=== PATIENT | male | born 1950 | race Caucasian/White ===

== ENCOUNTER 2017-01-02 07:21 | Day surgery (SDC) | payer OTHER ==
[2017-01-01 12:37] VITALS: BMI 31.0
[2017-01-02] MEDS ORDERED: METRONIDAZOLE 500 MG PREMIXED 100 ML IVPB ONE (08:12)
[2017-01-02] MEDS ORDERED: MIDAZOLAM HCL 2 MG/2 ML SINGLE DOSE VIAL ONE (08:30)
[2017-01-02] MEDS ORDERED: GENTAMICIN SO4 80 MG/2 ML VIAL ONE (08:41)
[2017-01-02] MEDS ORDERED: GENTAMICIN SO4 80 MG/2 ML VIAL IVPB ONE (08:44)
[2017-01-02] MEDS ORDERED: ceFAZolin SODIUM 1 GM VIAL IVPB ONE (08:46)
[2017-01-02] MEDS ORDERED: METRONIDAZOLE 500 MG PREMIXED 500 MG/100 ML MG IVPB ONE (08:48)
[2017-01-02] MEDS ORDERED: ceFAZolin SODIUM 1 GM VIAL ONE (08:56)
[2017-01-02] MEDS ORDERED: KETOROLAC TROMETHAMINE 30 MG/1 ML VIAL ONE (09:28)
[2017-01-02] MEDS ORDERED: LACTATED RINGERS SOLUTION 1,000 ML IV SCH (09:45)
[2017-01-02] MEDS ORDERED: ONDANSETRON 4 MG/2 ML VIAL IVPUSH PRN (09:45)
[2017-01-02] MEDS ORDERED: oxyCODONE HCL 5 MG TABLET PO PRN ×2 (09:45→10:13)
[2017-01-02] MEDS ORDERED: ACETAMINOPHEN 1000 MG/100 ML VIAL (NON FORMULARY) IVPB PRN (09:48)
[2017-01-02] MEDS ORDERED: hydrALAZINE HCL 20 MG/ML VIAL ONE (09:59)
--- NOTE | 2017-01-02 10:13 | OP ---
Operative Note - Note: Operative Date: 01/02/17 Pre-Operative Diagnosis: left distal ureteral stones Operation: cysto/retro/ureteroscopy/laser litho/stone basketing/stent replacement Findings: multiple large 1cm left distal stones, left distal ureteral stricture Surgeon: Juvenal Reyes Anesthesiologist/AP PROCESSOR: Roseann Bautista Anesthesia: Spinal Specimens Removed: stone frags Drains & Tubes with Location: 8fr, 24cm stent Operative Report Dictated: Yes
[2017-01-02] MEDS ORDERED: ELECTROLYTE-148 SOLN 1,000 ML IV SCH (10:15)
[2017-01-02] MEDS ORDERED: hydrALAZINE HCL 20 MG/ML VIAL IVPUSH PRN (10:45)
[2017-01-02 12:55] VITALS: TEMP 98.1
[2017-01-02 16:45] VITALS: BP 130/80; PULSE 68
--- NOTE | 2017-01-02 21:34 | OP ---
DATE OF OPERATION: 01/02/2017 PREOPERATIVE DIAGNOSIS: Obstructing stones, left distal ureter. POSTOPERATIVE DIAGNOSIS: Obstructing stones, left distal ureter. PROCEDURE: Cystoscopy, stent removal, ureteroscopy, laser lithotripsy, stone basketing, stent replacement. SURGEON: Deirdre Walter MD INDICATION: The patient is a 66-year-old male with multiple obstructing left distal ureteral stones, who underwent stent placement approximately a week and a half ago because of coexistent UTI. He is taken to the OR now for laser lithotripsy of stone. Risks, benefits, alternatives discussed including bleeding, infection, stricture formation, potential inability to access the stone, potential inability to completely eradicate the stone, potential need for additional procedures, potential injury to additional organs. After informed consent obtained, patient taken to OR, placed supine on table. After cardiac monitoring administered, a spinal anesthetic was given. He was prepped and draped in dorsal supine position. The 22 sheath was inserted into urethra without difficulty. Anterior urethra normal, prostatic urethra status post TUR defect. The bladder was then visualized. There was stent emitting from the left ureteral orifice. A guidewire could not be advanced alongside the stent so the stent was removed, a guidewire advanced through the stent into the left renal pelvis. Over the guidewire, a dual-lumen catheter was advanced and a 2nd wire was advanced in the left renal pelvis. Over the 2nd wire, a rigid ureteroscope was advanced into distal ureter. There was stricture into the distal ureter, where 3 large stones were seen impacted at the distal ureter. Each stone was approximately 1 cm in size. There were multiple smaller stones behind these stones. Using the 365 holmium laser fiber, each stone was pulverized to fine dust in 2 to 3 mm fragments. Due to the presence of stricture, it was difficult to remove some of these fragments and so at this point several of the stone fragments were removed with a stone basket and then ureteroscope was then removed and an 8-Romansh 24-cm double-J stent was advanced in monorail fashion over the remaining guidewire and fluoroscopy confirmed the stent to be in good position. The plan is to come back at a later date with the ureter being dilated with a larger stent to clean out the rest of the stone burden. The patient was awoken from anesthesia and transferred to recovery room in stable condition. There were no complications. Estimated blood loss was minimal. DEIRDRE WALTER M.D. [id number]
--- NOTE | 2017-01-03 08:34 | PATH ---
Surgical Pathology Report Patient Name: ERIC MENDEZ Med. Rec. #: [id number] /Age/Gender: 1950 (Age: 66) / M Account: [id number] Location: [facility] SURGICAL Taken: 01/02/2017 Received: 01/02/2017 Reported: 01/03/2017 Physicians: Juvenal Reyes M.D. Specimen(s) Received A: REMOVED STENT B: LEFT KIDNEY STONE Clinical History Kidney stone Final Diagnosis A. PRECISION INSTRUMENT MAKER, LEFT URETER, REMOVAL: URETERAL STENT (GROSS ONLY). B. LEFT KIDNEY STONE, EXTRACTION: CALCULI SUBMITTED FOR CHEMICAL ANALYSIS (gross only). Electronically Signed Eric Youssef M.D. Gross Description A. Received fresh labeled "removed stent," is a 32 cm in length yellow-green, coiled portion of tubing, consistent with a ureteral stent. No soft tissue is present. No sections are submitted, gross only. B. Received fresh labeled "left kidney stone," is a 0.3 cm in greatest dimension lynn, irregular calculus which is sent for chemical analysis. /01/02/2017 located within [facility]01/02/2017
[2017-01-16 14:37] LABS: COLOR ORANGE; SIZE 3X2X2; URIC ACID 100
== END 2017-01-02 16:30 | disposition home or self-care (01) ==
LOC: JASU-SURG 07:21
PROVIDERS: ATTEND Urology
PROC: 0TF78ZZ Fragmentation in Left Ureter, Via Natural or Artificial Opening Endoscopic (ICD-10-PCS; principal; 2017-01-02 08:30)
PROC: 0T778DZ Dilation of Left Ureter with Intraluminal Device, Via Natural or Artificial Opening Endoscopic (ICD-10-PCS; 2017-01-02 08:30)
DX: N20.1 Calculus of ureter (principal)
CPT/HCPCS: 36415; 76000-TC; 82360; 88300-TC; 94760

== ENCOUNTER 2017-01-17 09:59 | Inpatient (IN) | payer OTHER ==
[2017-01-16 14:01] VITALS: BMI 31.0
[2017-01-17] MEDS ORDERED: MIDAZOLAM HCL 2 MG/2 ML SINGLE DOSE VIAL ONE (11:36)
[2017-01-17] MEDS ORDERED: METRONIDAZOLE 500 MG PREMIXED 100 ML IVPB ONE (11:39)
[2017-01-17] MEDS ORDERED: PROPOFOL 20 ML ONE ×2 (11:44→12:38)
[2017-01-17] MEDS ORDERED: SUCCINYLCHOLINE CHLORIDE 200 MG/10 ML VIAL ONE (11:44)
[2017-01-17] MEDS ORDERED: ceFAZolin SODIUM 1 GM VIAL IVPB ONE (11:52)
[2017-01-17] MEDS ORDERED: METRONIDAZOLE 500 MG PREMIXED 500 MG/100 ML MG IVPB ONE (12:00)
[2017-01-17] MEDS ORDERED: IOHEXOL 300 MG/ML INFUS..BTL IV ONE ×2 (12:10)
[2017-01-17] MEDS ORDERED: oxyCODONE HCL 5 MG TABLET PO PRN ×2 (12:53→13:54)
--- NOTE | 2017-01-17 12:53 | OP ---
Operative Note - Note: Operative Date: 01/17/17 Pre-Operative Diagnosis: LDU stones Operation: cysto/stent removal/left ureteroscopy/stone manipulation Findings: stones LDU Post-Operative Diagnosis: Same as Pre-op Surgeon: Juvenal Reyes Anesthesiologist/MANUSCRIPTS ARCHIVIST: Cecile Mohr MD Anesthesia: General, Spinal Specimens Removed: stone frags Estimated Blood Loss (mls): 1 Operative Report Dictated: Yes
[2017-01-17] MEDS ORDERED: ELECTROLYTE-148 SOLN 1,000 ML IV SCH (13:00)
[2017-01-17] MEDS ORDERED: ONDANSETRON 4 MG/2 ML VIAL IVPUSH PRN (13:54)
[2017-01-17] MEDS ORDERED: ACETAMINOPHEN 1000 MG/100 ML VIAL (NON FORMULARY) IVPB ONE (13:55)
[2017-01-17] MEDS ORDERED: oxyCODONE HCL 5 MG TABLET ONE (15:56)
[2017-01-17] MEDS ORDERED: ONDANSETRON 4 MG/2 ML VIAL ONE (16:27)
--- NOTE | 2017-01-17 17:30 | OP ---
DATE OF OPERATION: PREOPERATIVE DIAGNOSIS: Left distal ureteral stones. POSTOPERATIVE DIAGNOSIS: Left distal ureteral stones. PROCEDURE: Cystoscopy, stent removal, ureteroscopy, and stone manipulation. INDICATION: Patient is a 66-year-old male who is status post bonilla lithotripsy of several large left ureteral stones, taken to OR for second look today. DESCRIPTION OF PROCEDURE: The patient was taken to the OR and placed supine on the operating table. After cardiac monitoring was initiated, spinal anesthetic was given. He is prepped and draped in the dorsal supine position. A rigid cystoscope was inserted into the bladder. There was some meatal stenosis that required gentle dilation. Once the bladder was visualized, the stent was seen emanating from the left ureter orifice. This was grasped with a grasper and brought out to the meatus through which a guidewire was advanced into the renal pelvis. Alongside guidewire, a rigid cystoscope was entered distal ureter. There was still some narrowing in the distal ureter consistent with prior stone impaction. There were several small stones noted, and by manipulation of stones with irrigation and using the tip of the ureteroscope, the stones were pushed out of the ureter into the bladder. The ureteroscope was advanced into the mid ureter and no other stones were noted. Ureteroscope and access wire were then removed, and patient was awoken from anesthesia and transferred to recovery in stable condition. There were no complications. Estimated blood loss was minimal. DEIRDRE WALTER M.D. [id number]
--- NOTE | 2017-01-17 18:08 | PN ---
Progress Note (short form) - Note Progress Note: ID consult dictated Fever and CHills s/p Cystoscopy with stent removal and ureteroscopy/ sepsis/gu source choi just placed in [facility] recent cdiff for last two weeks cultures labs IVF AXR low threshold for ct scan abd/pelvis if abdominal pain doesnot improve after placement of choi catheter (just placed) vancomycin one dose meropenem- cover ESBL orginisms, history of recurrent UTIs per urologist continue po vancomycin for cdiff stool cdiff d/w Hospitalist
[2017-01-17] MEDS ORDERED: VANCOMYCIN 1,250 MG in DEXTROSE 5%-WATER - 250 ML IVPB ONE (18:15)
--- NOTE | 2017-01-17 18:23 | HP ---
CHIEF COMPLAINT: fever post op from ureter stent removal PCP: from [facility] urologist : Dr. Reyes HISTORY OF PRESENT ILLNESS: This 66 year old male underwent a ureter stent removal and urethralscopy with stone removal today. While in [facility] recovery, pt developed fever, chills, rigors. Dr. Reyes contacted the hospitalist service for pt admission. Pt has a significant history of current use of vancomycin po for cdiff. According to his , pt has had a decline over the past year with loss of bowel and bladder, shuffling walking, stones kidney reoccuring and mild AMS with findings of normal pressure hydrocephalus. He has also been noncompliant with his medications. ASU course was notable for: (1) stent removal, scoping, and stone removal per Dr. 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 Family History: Allergies No Known Allergies Allergy (Verified 01/17/17 10:43) HOME MEDICATIONS: According to , pt is noncompliant Home Medications Medication Instructions Recorded Amlodipine Bes/Olmesartan Med 1 each PO DAILY 01/01/17 [Amlodipine-Olmesartan 10-20 mg] Atorvastatin Ca [Lipitor] 80 mg PO HS 01/01/17 Metformin HCl [Metformin HCl ER] 1,000 mg PO BID 01/01/17 Tamsulosin HCl 0.4 mg PO DAILY 01/01/17 Vancomycin HCl 125 mg PO QID 01/01/17 REVIEW OF SYSTEMS Unable to obtain ROS as pt is under the influence of pain medications post op and does not make much sense when talking to him PHYSICAL EXAMINATION Vital Signs - 24 hr 01/17/17 01/17/17 01/17/17 10:52 12:52 13:00 Temperature 98.7 F 97.7 F Pulse Rate 69 64 62 Respiratory 6 L 10 L 12 Rate Blood Pressure 144/66 151/75 150/75 O2 Sat by Pulse 97 99 99 Oximetry (%) 01/17/17 01/17/17 01/17/17 13:15 13:30 13:45 Temperature Pulse Rate 61 61 65 Respiratory 15 10 L 14 Rate Blood Pressure 161/80 165/78 177/80 O2 Sat by Pulse 96 97 97 Oximetry (%) 01/17/17 01/17/17 01/17/17 14:00 14:15 14:30 Temperature Pulse Rate 65 68 66 Respiratory 17 15 14 Rate Blood Pressure 184/80 181/83 158/73 O2 Sat by Pulse 97 95 96 Oximetry (%) 01/17/17 01/17/17 14:45 15:00 Temperature 97.7 F Pulse Rate 68 70 Respiratory 12 12 Rate Blood Pressure 167/77 161/75 O2 Sat by Pulse 99 97 Oximetry (%) GENERAL: AA but unable to answer appropriately post op on pain meds. HEAD: Normal with no signs of trauma. NECK: Normal range of motion, supple without lymphadenopathy, JVD, or masses. LUNGS: Breath sounds equal, clear to auscultation bilaterally. No wheezes, and no crackles. No accessory muscle use. HEART: Regular rate and rhythm, normal S1 and S2 without murmur, rub or gallop. ABDOMEN: Soft, nontender, Positive for distended, bowel sounds, no guarding, no rebound, no masses. No hepatomegaly or splenomegaly. : Choi cath in place draining red pinkish urine draining without clots to SBD without blockage. MUSCULOSKELETAL: Normal range of motion at all joints. No bony deformities or tenderness. No CVA tenderness. UPPER EXTREMITIES: 2+ pulses, warm, well-perfused. No cyanosis. No clubbing. No peripheral edema. LOWER EXTREMITIES: 2+ pulses, warm, well-perfused. No calf tenderness. No peripheral edema. NEUROLOGICAL: Cranial nerves II-XII intact. Normal speech. Normal gait. PSYCHIATRIC: Cooperative. Good eye contact. Appropriate mood and affect. SKIN: Warm, dry, normal turgor, no rashes or lesions noted, normal capillary refill. Laboratory Results - last 24 hr 01/17/17 10:36 POC Glucometer 151 ASSESSMENT/PLAN: 66 yr old male with recent /stone surgery and choi placement with Fever, chills, rigors with sign hx of cdiff 1. Post op urethralscopy, stone manipulation and stent removal -continue choi per -IVF and if clotting in choi please contact and hospitalist -ua/ cx -pain meds 2. Cdiff -continue vanco po -appreciate ID note 3. fever -labs, cultures, xray -appreciate ID input on ABT to be started. -tylenol for fever 4. Abd distention -Flat AXR ordered -eval labs -probable CT scan needed tonight once workup completed. -cdiff specimen if produced. 5. HTN -continue amlodipine 6. non compliant with meds -awaiting a list from of pt home meds to input into system to resume 7. sleep apnea -cpap ordered standard numbers, pt does not know his settings. Visit type - Emergency Visit Emergency Visit: No - New Patient This patient is new to me today: Yes Date on this admission: 01/17/17 - Critical Care Critical Care patient: No
[2017-01-17] MEDS: MEROPENEM 1 GM in DEXTROSE 5%-WATER - 100 ML IVPB SCH ×2 (19:00→20:20)
[2017-01-17 19:06] LABS: PH,URINE 6.5 (5.0-8.0); URINE APPEARANCE CLEAR; URINE BILIRUBIN NEGATIVE (NEGATIVE); URINE COLOR DK. RED; URINE GLUCOSE (UA) TRACE (NEGATIVE); URINE KETONE 1+ (NEGATIVE); URINE UROBILINOGEN 4.0 E.U/dl E.U./dl (0.2-1.0)
[2017-01-17 19:11] LABS: URINE BLOOD 3+ (NEGATIVE); URINE LEUK ESTERASE 2+ (NEGATIVE); URINE NITRITE POSITIVE (NEGATIVE); URINE PROTEIN 3+ (NEGATIVE)
[2017-01-17 19:16] LABS: CALCIUM OXALATE CRYSTALS MANY /hpf (NONE SEEN); URINE RBC 5464 /hpf (0-3)
[2017-01-17 19:21] LABS: BASOPHIL 0.3 % (0-2.0); EOSINOPHIL 0.1 % (0-4.5); MCH 26.1 pg (25.7-33.7); MCHC 33.7 g/dl (32.0-35.9); MEAN CELL VOLUME 77.4 fl (80-96); MEAN PLT VOLUME 7.6 fl (7.5-11.1); NEUTROPHILS 93.4 % (42.8-82.8); PLATELET COUNT 233 K/MM3 (134-434); RDW 14.4 % (11.9-15.9); WHITE BLOOD COUNT 12.1 K/mm3 (4.0-10.0)
[2017-01-17 19:50] LABS: ALBUMIN 3.2 g/dl (3.4-5.0); ALK PHOS 157 U/L (45-117); ANION GAP 11 (8-16); BILIRUBIN,TOTAL 0.8 mg/dL (0.2-1.0); CALCIUM 8.3 mg/dL (8.5-10.1); CO2 23 mmol/L (21-32); COCKROFT - GAULT 83.91; CREATININE 1.1 mg/dL (0.7-1.3); GLUCOSE,RANDOM 267 mg/dL (74-106); SGOT/AST 10 U/L (15-37); SGPT/ALT 19 U/L (12-78); TOT PROT 6.9 g/dl (6.4-8.2)
--- NOTE | 2017-01-17 20:04 | PN ---
Progress Note (short form) - Note Progress Note: Developed fever, urinary retention, abdominal distention and left LQ pain after ureteroscopy and stent removal. In retrosprect the LLQ pain has been persistant for weeks. CT show\s no evidence of ureteral obstruction, or extravastation. There is ureteral edema and perinephric stranding. Will be placed on broad spectrum antibiotics and monitored. ID and Hospitalist inputs appreciated
[2017-01-17] MEDS: LACTATED RINGERS SOLUTION 1,000 ML IV SCH (20:18)
[2017-01-17] MEDS: VANCOMYCIN 250 MG/5 ML ORAL SOLUTION PO SCH (21:11)
--- NOTE | 2017-01-17 21:18 | CONS ---
DATE OF CONSULTATION: DATE OF DICTATION: 01/17/2017 REQUESTED BY: Juvenal Reyes MD HISTORY OF PRESENT ILLNESS: This is a 66-year-old man with past medical history of recurrent nephrolithiasis, diabetes, hypertension, who about a month ago, was at [facility] with left-sided abdominal pain. He had a spiral CT, had a stone. He had a stent placed. He subsequently developed fever, was rehospitalized, was then told he had a urinary tract infection for which he was given antibiotics as well as Clostridium difficile. He apparently has a longstanding history of fecal incontinence and loose stools and tested positive for Clostridium difficile and he was treated with oral vancomycin. He now was brought in today to the [facility] for cystoscopy, stent removal and ureteroscopy and removal of stone. He, postprocedure, developed shaking chills and had fever to 101.4, hence I was asked to see him. The family is not aware of any of the nature of his urinary tract infections. They do not know what antibiotics he got in the operating room. He received Ancef and Flagyl here. I spoke with Dr. Reyes who reports he has a 2-year history of urinary tract infections. ALLERGIES: No known allergies. MEDICATIONS: At home include tamsulosin, metformin, atorvastatin, amlodipine, olmesartan, and oral vancomycin, which he has been taking for 2 weeks. PAST MEDICAL HISTORY: Notable for diabetes, hypertension, normal pressure hydrocephalus and nephrolithiasis. PAST SURGICAL HISTORY: He had surgery of his right elbow. He had shoulder arthroscopy. He had kidney surgery to have some cysts removed from his kidney 4 years ago at [facility]. He had an anal fissure repair 8 years ago. SOCIAL HISTORY: He is . He is retired. 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 He lives with his . He is a former smoker. Social alcohol. No other substance use. REVIEW OF SYSTEMS: He has had colonoscopy in the past, which has been normal. He does have chronic fecal incontinence and loose stools, which have been apparently attributed both to the repair of his anus as well as his normal pressure hydrocephalus. PHYSICAL EXAMINATION: General: He is awake but he is uncomfortable. Vital Signs: Temperature 97.7, T-max is 101.4, pulse 70, blood pressure 161/75, respiratory rate 12, he is saturating 97%. HEENT: He is normocephalic. His eyes are anicteric. Neck: Supple. Lungs: Clear to auscultation. Heart: Regular rate and rhythm. Abdomen: Soft, distended. He has good bowel sounds. He has some left lower quadrant discomfort on palpation. Apparently the stent was removed from the left side. A García was just placed by the nurse and he has gross hematuria. His extremities are without edema. He has no rash. LABORATORY DATA: We have no laboratory data and we have no culture data. IN SUMMARY: This is a 66-year-old man with possible sepsis from his urologic procedure today. García was just placed with hematuria. He is still in the ASU, and he had recent Clostridium difficile. Would obtain cultures, labs, treat him with IV fluids. Will get an abdominal x-ray for his abdominal distention. Low threshold for CT scan of his abdomen and pelvis if his abdominal pain does not improve with the García catheter. Will give him vancomycin and meropenem, as he has a history of recurrent urinary tract infection Extended-spectrum beta lactamase organisms are a consideration. Would continue oral vancomycin for Clostridium difficile and would check a stool Clostridium difficile as well. All of the above was discussed with the hospitalist. PETR GRANADOS M.D. [id number]
[2017-01-17] MEDS: ACETAMINOPHEN 325 MG TABLET (FP) PO PRN (22:10)
[2017-01-18] MEDS: VANCOMYCIN 250 MG/5 ML ORAL SOLUTION PO SCH ×4 (00:05→18:10)
[2017-01-18] MEDS: MEROPENEM 1 GM in DEXTROSE 5%-WATER - 100 ML IVPB SCH ×3 (01:25→18:03)
[2017-01-18] MEDS: LACTATED RINGERS SOLUTION 1,000 ML IV SCH (04:44)
[2017-01-18] MEDS ORDERED: ACETAMINOPHEN 650 MG SUPP.RECT PR PRN (04:50)
[2017-01-18] MEDS ORDERED: PT OWN MED DRAWER 7, Y5N ONE ×4 (06:19→18:00)
[2017-01-18 07:17] LABS: BASOPHIL 0.2 % (0-2.0); MCH 26.2 pg (25.7-33.7); MCHC 33.9 g/dl (32.0-35.9); MEAN CELL VOLUME 77.5 fl (80-96); MEAN PLT VOLUME 7.6 fl (7.5-11.1); NEUTROPHILS 94.9 % (42.8-82.8); PLATELET COUNT 224 K/MM3 (134-434); RDW 14.1 % (11.9-15.9)
[2017-01-18 07:24] LABS: INR 1.43 (0.82-1.09); PROTHROMBIN TIME (PATIENT) 15.8 SEC (9.98-11.88)
[2017-01-18 07:41] LABS: ALBUMIN 2.9 g/dl (3.4-5.0); ANION GAP 10 (8-16); BILIRUBIN,TOTAL 0.7 mg/dL (0.2-1.0); CALCIUM 8.2 mg/dL (8.5-10.1); CO2 26 mmol/L (21-32); COCKROFT - GAULT 76.92; CREATININE 1.2 mg/dL (0.7-1.3); GLUCOSE,RANDOM 245 mg/dL (74-106); SGOT/AST 10 U/L (15-37); SGPT/ALT 17 U/L (12-78); TOT PROT 6.4 g/dl (6.4-8.2)
[2017-01-18 07:42] LABS: ALK PHOS 147 U/L (45-117)
--- NOTE | 2017-01-18 08:19 | PN ---
Progress Note (short form) - Note Progress Note: c/o gas pains. states he been having lots of flatus since yesterday. no other complaints. Denies Cp, SOB, N/V/C/D, Current Medications Generic Name Dose Route Start Last Admin Trade Name Freq PRN Reason Stop Dose Admin Acetaminophen 650 mg 01/17/17 22:04 01/17/17 22:10 Tylenol - PO 650 mg Q4H PRN Administration FEVER Acetaminophen 650 mg 01/18/17 04:50 01/18/17 04:30 Tylenol Suppository - SD 650 mg Q4H PRN Administration FEVER OR PAIN Fentanyl 50 mcg 01/17/17 13:54 01/17/17 13:55 Sublimaze Injection - IVPUSH 01/20/17 13:55 50 mcg [id number] PRN Administration PAIN Lactated Ringer's 1,000 mls @ 75 mls/hr 01/17/17 14:00 01/18/17 04:44 Lactated Ringers Solution IV 75 mls/hr ASDIR EUGENE Administration Meropenem 1 gm/ Dextrose 100 mls @ 200 mls/hr 01/17/17 18:15 01/18/17 01:25 IVPB 200 mls/hr Q8H-IV EUGENE Administration Protocol Metronidazole 100 mls @ 100 mls/hr 01/18/17 10:00 Flagyl 500mg Premixed Ivpb - IVPB Q8H-IV EUGENE Oxycodone HCl 10 mg 01/17/17 12:53 01/17/17 16:00 Roxicodone - PO 10 mg Q4H PRN Administration PAIN Oxycodone HCl 5 mg 01/17/17 13:54 Roxicodone - PO Q4H PRN MILD PAIN Vancomycin HCl 125 mg 01/17/17 18:00 01/18/17 06:16 Vancomycin Oral Solution PO Not Given Q6HPO EUGENE Last Vital Signs Temp Pulse Resp BP Pulse Ox 102.4 F H 105 H 20 148/74 98 01/18/17 06:52 01/18/17 04:40 01/18/17 04:40 01/18/17 04:40 01/17/17 23:00 General NAD A&O x2 (self and time) CV S1 S2 RRR +murmur no rubs or gallops Lungs CTA B/L anteriorly no wheeizing or crackles Abdomen +distended soft +BS no rebound or guarding unable to palpate liver edge no caput medusa/hemangiomata Extremities no pedal edema CBCD WBC 13.0 K/mm3 (4.0-10.0) H 01/18/17 06:00 RBC 4.21 M/mm3 (4.00-5.60) 01/18/17 06:00 Hgb 11.1 GM/dL (11.7-16.9) L 01/18/17 06:00 Hct 32.6 % (35.4-49) L 01/18/17 06:00 MCV 77.5 fl (80-96) L 01/18/17 06:00 MCHC 33.9 g/dl (32.0-35.9) 01/18/17 06:00 RDW 14.1 % (11.9-15.9) 01/18/17 06:00 Plt Count 224 K/MM3 (134-434) 01/18/17 06:00 MPV 7.6 fl (7.5-11.1) 01/18/17 06:00 CMP Sodium 138 mmol/L (136-145) 01/18/17 06:00 Potassium 3.4 mmol/L (3.5-5.1) L 01/18/17 06:00 Chloride 102 mmol/L (98-107) 01/18/17 06:00 Carbon Dioxide 26 mmol/L (21-32) 01/18/17 06:00 Anion Gap 10 (8-16) 01/18/17 06:00 BUN 14 mg/dL (7-18) 01/18/17 06:00 Creatinine 1.2 mg/dL (0.7-1.3) 01/18/17 06:00 Creat Clearance w eGFR > 60 (>60) 01/18/17 06:00 Calcium 8.2 mg/dL (8.5-10.1) L 01/18/17 06:00 Total Bilirubin 0.7 mg/dL (0.2-1.0) 01/18/17 06:00 AST 10 U/L (15-37) L 01/18/17 06:00 ALT 17 U/L (12-78) 01/18/17 06:00 Alkaline Phosphatase 147 U/L (45-117) H 01/18/17 06:00 Total Protein 6.4 g/dl (6.4-8.2) 01/18/17 06:00 Albumin 2.9 g/dl (3.4-5.0) L 01/18/17 06:00 A/p 66yo M with PMH DM, NPH, HTN, nephrolithasis and cdiff was admitted for post -op fever and chills after ureteral stent removal and lithortipsy 1. Sepsis due to likely UTI- Hx of ESBL in the past.CXR negative. Tm 103. choi placed with carrillo hematuria noted. will give 1L NS in setting of active sepsis. vanco x1 given and on meropenem day 2. started on Flagyl today. awaiting cx. ID and urology on board. CT abdomen and pelvis negative for pyelo or intra- abdominal source of infection 2. abdominal distention- no signs of acute abdomen. tolerating diet. no BM since admitted. AXR showing air in the stomach but no signs of ileus on CT or signs of obstruction or free air. simethicone. monitor for now as tolerating diet 3. Portal HTN-seen on CT scan. pt has no recollection of being told of cirrhosis or portal HTN. denies heavy ETOH use. check hepatitis panel. obtain collateral records from PMD on Friday 4. Cdiff- on treatment about week per pt. no reports of loose stools. cdiff pending. on vanco po. contact precautions 5. HTN- above goal. re-start norvasc and monitor 6. DM- hold oral agents in setting of recent contrast exposure. iss, bgm 7. DVT ppx- SCD. hold pharmacologic in setting of active hematuria. Visit type - Emergency Visit Emergency Visit: No - New Patient This patient is new to me today: Yes Date on this admission: 01/18/17 - Critical Care Critical Care patient: No - Discharge Referral Referred to [facility] Med P.C.: No
[2017-01-18] MEDS ORDERED: SIMETHICONE 80 MG TAB.CHEW (FP) PO PRN (08:21)
[2017-01-18] MEDS ORDERED: SODIUM CHLORIDE 1,000 ML IV ONE (08:24)
[2017-01-18] MEDS ORDERED: METRONIDAZOLE 500 MG PREMIXED 100 ML IVPB SCH (10:00)
--- NOTE | 2017-01-18 10:05 | EKG ---
Test Reason : Blood Pressure : / mmHG Vent. Rate : 065 BPM Atrial Rate : 065 BPM P-R Int : 152 ms QRS Dur : 142 ms QT Int : 420 ms P-R-T Axes : 026 017 019 degrees QTc Int : 436 ms NORMAL SINUS RHYTHM RIGHT BUNDLE BRANCH BLOCK ABNORMAL ECG NO PREVIOUS ECGS AVAILABLE Confirmed by TODD BEACH MD ([id number]) on 01/18/2017 10:05:22 AM Referred By: Juvenal Reyes Confirmed By:TODD BEACH MD
[2017-01-18] MEDS: TAMSULOSIN HCL 0.4 MG CAP.ER.24H (FP) PO SCH (10:14)
[2017-01-18] MEDS: amLODIPine BESYLATE 5 MG TABLET (FP) PO SCH (10:14)
--- NOTE | 2017-01-18 10:23 | PN ---
Progress Note (short form) - Note Progress Note: awake and alert fevers overnight no abdominal pain today refused oral vancomycin overnight so IV flagyl was started- now agreeable to oral vancomycin ct scan noted- Vital Signs Period Temp Pulse Resp BP Sys/Wilson Pulse Ox Last 24 Hr 97.7 F-103.0 F 61-117 6-20 129-184/66-94 93-99 cor-rrr lungs clear abd soft, less distended, nontender +BM choi hematuria- less bloody ext no edema CBC, BMP 01/18/17 06:00 01/18/17 06:00 cultures pending a/p sepsis s/p cystoscopy yesterday and stent removal continue meropenem f/u cultures unfortunately urine culture was not sent prior to antiibotics- although it was ordered cdiff- by history continue po vancomycin, will d/c flagyl f/u cultures ?liver cirrhosis/portal HTN- noted on ct scan
--- NOTE | 2017-01-18 10:54 | PN ---
Progress Note (short form) - Note Progress Note: has spiked temps overnight overall feels better no abdominal pain abdominal distention improved urine less bloody cont choi-will give voiding trial when afebrile will start flomax
[2017-01-18] MEDS: INSULIN SLIDING SCALE (NOVOLOG) 1 VIAL SQ SCH ×3 (11:33→22:50)
[2017-01-18] MEDS: ACETAMINOPHEN 325 MG TABLET (FP) PO PRN ×2 (11:46→18:05)
[2017-01-18] MEDS: ATORVASTATIN CA 80 MG TABLET (FP) PO SCH (22:48)
[2017-01-19] MEDS: VANCOMYCIN 250 MG/5 ML ORAL SOLUTION PO SCH ×4 (00:32→18:24)
[2017-01-19] MEDS ORDERED: PT OWN MED DRAWER 7, Y5N ONE ×3 (01:15→10:07)
[2017-01-19] MEDS: MEROPENEM 1 GM in DEXTROSE 5%-WATER - 100 ML IVPB SCH ×2 (01:31→10:14)
[2017-01-19] MEDS: ACETAMINOPHEN 325 MG TABLET (FP) PO PRN ×2 (01:32→21:31)
[2017-01-19] MEDS: INSULIN SLIDING SCALE (NOVOLOG) 1 VIAL SQ SCH ×4 (06:01→21:38)
[2017-01-19 08:34] LABS: BASOPHIL 0.2 % (0-2.0); EOSINOPHIL 0.3 % (0-4.5); MCH 26.8 pg (25.7-33.7); MCHC 34.8 g/dl (32.0-35.9); MEAN CELL VOLUME 77.1 fl (80-96); MEAN PLT VOLUME 7.9 fl (7.5-11.1); NEUTROPHILS 89.6 % (42.8-82.8); PLATELET COUNT 191 K/MM3 (134-434); RDW 14.5 % (11.9-15.9); WHITE BLOOD COUNT 8.1 K/mm3 (4.0-10.0)
[2017-01-19 09:11] LABS: ALBUMIN 2.7 g/dl (3.4-5.0); ALK PHOS 166 U/L (45-117); ANION GAP 12 (8-16); BILIRUBIN,TOTAL 0.7 mg/dL (0.2-1.0); CALCIUM 8.3 mg/dL (8.5-10.1); CO2 26 mmol/L (21-32); GLUCOSE,RANDOM 156 mg/dL (74-106); SGOT/AST 18 U/L (15-37); SGPT/ALT 23 U/L (12-78)
[2017-01-19] MEDS ORDERED: CASPOFUNGIN ACETATE 70 MG in SODIUM CHLORIDE 250 ML IVPB ONE (10:06)
--- NOTE | 2017-01-19 10:12 | PN ---
Progress Note (short form) - Note Progress Note: has spiked temp to 103 overnight, afebrile now blood cultures with yeast feels better, no abdominal pain abdominal distention continues to improve urine much less bloody cont choi, flomax antifungal tx as per ID
[2017-01-19] MEDS: amLODIPine BESYLATE 5 MG TABLET (FP) PO SCH (10:15)
[2017-01-19] MEDS: TAMSULOSIN HCL 0.4 MG CAP.ER.24H (FP) PO SCH (10:15)
--- NOTE | 2017-01-19 10:55 | PN ---
Progress Note (short form) - Note Progress Note: awake and alert fevers overnight no abdominal pain today no vomiting, eating his meals no visual complaints Vital Signs Period Temp Pulse Resp BP Sys/Wilson Pulse Ox Last 24 Hr 97.7 F-103 F 78-107 18-20 119-155/59-84 cor-rrr llungs clear abd soft,much less distended, nontender choi less blood ext no edema CBC, BMP 01/19/17 06:30 01/19/17 06:30 Microbiology 01/17/17 19:09 Blood - Peripheral Venous Blood Culture - Preliminary Pending Organism 01/17/17 19:09 Blood - Peripheral Venous Blood Culture - Preliminary NO GROWTH OBTAINED AFTER 24 HOURS, INCUBATION TO CONTINUE FOR 4 DAYS. 01/18/17 04:30 Stool Clostridium difficile Antigen (LAURA) - Final 01/18/17 04:30 Stool Clostridium difficile Toxin Assay - Final a/p sepsis s/p cystoscopy yesterday and stent removal Fungemia- start cancidas today repeat blood cultures in am, d/c meropenem should be seen by opthomology cdiff- by history continue po vancomycin ?liver cirrhosis/portal HTN- noted on ct scan d/w patient d/w d/w urology
--- NOTE | 2017-01-19 14:14 | PN ---
Teaching Attending Note Name of Resident: Chalino Zavala ATTENDING PHYSICIAN STATEMENT I saw and evaluated the patient. I reviewed the resident's note and discussed the case with the resident. I agree with the resident's findings and plan as documented. SUBJECTIVE: overall feels improved. continues to have soft stool but not watery like it was previously. tolerating diet. states abdomen feels less bloated. denies Cp, SOB,fever, chills, N/V/C/D no blurred vision OBJECTIVE: Last Vital Signs Temp Pulse Resp BP Pulse Ox 98.4 F 80 18 136/74 94 L 01/19/17 12:53 01/19/17 12:53 01/19/17 12:53 01/19/17 12:53 01/19/17 11:14 General NAD A&Ox2 (self and location) CV S1 S2 RRR +murmur no rubs or gallops Lungs CTA B/L anteriorly no wheeizing or crackles Abdomen +distended soft +BS no rebound or guarding Extremities no pedal edema ASSESSMENT AND PLAN: 66yo M with PMH DM, NPH, HTN, nephrolithasis and cdiff was admitted for post-op fever and chills after ureteral stent removal and lithortipsy 1. Sepsis due to fungemia-Suspicion of UTI however cx negative. BCx with fungemia. started on Caspofungin. will need to have optho evaluation. wait for final Cx report. 2. abdominal distention- no signs of acute abdomen. tolerating diet. monitor for now as tolerating diet 3. Hypokalemia- KCl 40meq, check Mg 4. Portal HTN-seen on CT scan. pt has no recollection of being told of cirrhosis or portal HTN. denies heavy ETOH use. hepatitis panel pending. obtain collateral records from PMD on Friday 5. Cdiff- cdiff here negative. continues to have soft stool. contact precautions 6. HTN- improved. cont norvasc 7. DM- A1c 7.9. hold oral agents in setting of recent contrast exposure. iss, bgm 8. DVT ppx- SCD. hold pharmacologic in setting of active hematuria.
--- NOTE | 2017-01-19 14:46 | PN ---
Physical Exam: SUBJECTIVE: Patient seen and examined Pt is awake, alert and oriented to place and person Pt is mildly forgetful Pt has fever overnight no dysuria no hematuria abdominal pain or back pain OBJECTIVE: Vital Signs Period Temp Pulse Resp BP Sys/Wilson Pulse Ox Last 24 Hr 97.7 F-103 F 78-107 18-20 119-155/59-84 94-97 GENERAL: The patient is awake, alert, and fully oriented, in no acute distress. HEAD: Normal with no signs of trauma. LUNGS: Breath sounds equal, clear to auscultation bilaterally, no wheezes, no crackles, no accessory muscle use. HEART: Regular rate and rhythm, S1, S2 with murmur, rub or gallop. ABDOMEN: Soft, nontender, nondistended, normoactive bowel sounds, no guarding, no rebound, no hepatosplenomegaly, no masses. EXTREMITIES: 2+ pulses, warm, well-perfused, no edema. NEUROLOGICAL: Normal speech, gait not observed. PSYCH: Normal mood, normal affect. SKIN: Warm, dry, normal turgor, no rashes or lesions noted Laboratory Results - last 24 hr 01/18/17 01/18/17 01/19/17 18:06 22:49 05:56 WBC RBC Hgb Hct MCV MCHC RDW Plt Count MPV Neutrophils % Lymphocytes % Monocytes % Eosinophils % Basophils % Sodium Potassium Chloride Carbon Dioxide Anion Gap BUN Creatinine Creat Clearance w eGFR POC Glucometer 138 165 201 Random Glucose Hemoglobin A1c % Calcium Total Bilirubin AST ALT Alkaline Phosphatase Total Protein Albumin 01/19/17 01/19/17 01/19/17 06:30 06:30 06:30 WBC 8.1 D RBC 3.85 L Hgb 10.3 L Hct 29.7 L MCV 77.1 L MCHC 34.8 RDW 14.5 Plt Count 191 MPV 7.9 Neutrophils % 89.6 H Lymphocytes % 4.8 L D Monocytes % 5.1 Eosinophils % 0.3 D Basophils % 0.2 Sodium 137 Potassium 3.3 L Chloride 99 Carbon Dioxide 26 Anion Gap 12 BUN 15 Creatinine 1.0 Creat Clearance w eGFR > 60 POC Glucometer Random Glucose 156 H D Hemoglobin A1c % 7.9 H Calcium 8.3 L Total Bilirubin 0.7 AST 18 D ALT 23 D Alkaline Phosphatase 166 H Total Protein 6.0 L Albumin 2.7 L 01/19/17 12:04 WBC RBC Hgb Hct MCV MCHC RDW Plt Count MPV Neutrophils % Lymphocytes % Monocytes % Eosinophils % Basophils % Sodium Potassium Chloride Carbon Dioxide Anion Gap BUN Creatinine Creat Clearance w eGFR POC Glucometer 154 Random Glucose Hemoglobin A1c % Calcium Total Bilirubin AST ALT Alkaline Phosphatase Total Protein Albumin Active Medications Generic Name Dose Route Start Last Admin Trade Name Freq PRN Reason Stop Dose Admin Acetaminophen 650 mg 01/17/17 22:04 01/19/17 01:32 Tylenol - PO 650 mg Q4H PRN Administration FEVER Acetaminophen 650 mg 01/18/17 04:50 01/18/17 04:30 Tylenol Suppository - [place] 650 mg Q4H PRN Administration FEVER OR PAIN Amlodipine Besylate 5 mg 01/18/17 10:00 01/19/17 10:15 Norvasc - PO 5 mg DAILY EUGENE Administration Atorvastatin Calcium 80 mg 01/18/17 22:00 01/18/17 22:48 Lipitor - PO 80 mg HS EUGENE Administration Fentanyl 50 mcg 01/17/17 13:54 01/17/17 13:55 Sublimaze Injection - IVPUSH 01/20/17 13:55 50 mcg [id number] PRN Administration PAIN Caspofungin 50 mg/ Sodium 250 mls @ 250 mls/hr 01/20/17 10:00 Chloride IVPB DAILY [facility] Insulin Aspart 1 vial 01/18/17 11:00 01/19/17 12:05 Novolog Vial Sliding Scale - SQ Not Given ACHS [facility] Protocol Oxycodone HCl 10 mg 01/17/17 12:53 01/17/17 16:00 Roxicodone - PO 10 mg Q4H PRN Administration PAIN Oxycodone HCl 5 mg 01/17/17 13:54 Roxicodone - PO Q4H PRN MILD PAIN Simethicone 80 mg 01/18/17 08:21 Mylicon - PO Q4H PRN bloating Tamsulosin HCl 0.4 mg 01/18/17 10:00 01/19/17 10:15 Flomax - PO 0.4 mg DAILY [facility] Administration Vancomycin HCl 125 mg 01/17/17 18:00 01/19/17 12:09 Vancomycin Oral Solution PO 125 mg Q6HPO EUGENE Administration CBC, BMP 01/19/17 06:30 01/19/17 06:30 Microbiology 01/18/17 04:30 Stool Clostridium difficile Antigen (LAURA) - Final 01/18/17 04:30 Stool Clostridium difficile Toxin Assay - Final 01/18/17 00:12 Urine - Urine García Urine Culture - Final NO GROWTH OBTAINED 01/17/17 19:09 Blood - Peripheral Venous Blood Culture - Preliminary Pending Organism 01/17/17 19:09 Blood - Peripheral Venous Blood Culture - Preliminary NO GROWTH OBTAINED AFTER 24 HOURS, INCUBATION TO CONTINUE FOR 4 DAYS. ASSESSMENT/PLAN: 66 year old male with pmh of DM, HTN, nephrolithiasis, Cdiff present with fever and chilsl s/p Cystoscopy with stent removal Sepsis with Fungemia from UTI tmax 103 overnight, HR 107 CT abdomen and pelvis showed no abscess, no pyelonephritis and s/s of infections. Blood culture positive for yeast like organism Pt was on merem Was switched to caspofungin by ID F/u urine culture and blood culture repeat blood culture in am urology on case Abdominal Distension No free air seen on CT abdomen/pelvis No n/v no abdominal tenderness tolerating diet well on simethicone C-diff H/o of C-diff 2 soft, pasty bowel movement per day, none watery per pt Nurse say that stool is yellow and watery Was on Po vancomycin Cdiff antigen and toxin negative Consider continuing C-diff antibiotic course as it was incomplete last time ID on case HTN SBP 155 or less on amlodipine 5mg PO daily DM hgA1c 7.9 Used 4 unit novolog coverage in alst 24 hours Novolog sliding scale Portable hypertension with hepatomegaly and possible liver cirrhosis hepatitis panel pending Pt denies any h/o liver disease Obtain records from PCP in am 01/20/17 FEN Fluid: none Electrolytes: chemistry in am Nutrition: diabetic diet DVT prophylaxis: SCD Disposition: Keep in medsurg pending resolution of sepsis Visit type - Emergency Visit Emergency Visit: Yes ED Registration Date: 01/17/17 Care time: The patient presented to the Emergency Department on the above date and was hospitalized for further evaluation of their emergent condition. - New Patient This patient is new to me today: Yes Date on this admission: 01/19/17 - Critical Care Critical Care patient: No - Discharge Referral Referred to [facility] No
[2017-01-19] MEDS ORDERED: POTASSIUM CHLORIDE ORAL LIQUID 20 MEQ/15 ML PO ONE (15:49)
[2017-01-19] MEDS ORDERED: INSULIN (NOVOLOG) ASPART 100 UNITS/ML 10ML VIAL ONE (18:17)
[2017-01-19] MEDS: ATORVASTATIN CA 80 MG TABLET (FP) PO SCH (21:31)
[2017-01-20] MEDS: VANCOMYCIN 250 MG/5 ML ORAL SOLUTION PO SCH ×4 (06:28→17:33)
[2017-01-20] MEDS: INSULIN SLIDING SCALE (NOVOLOG) 1 VIAL SQ SCH ×4 (06:28→22:02)
[2017-01-20] MEDS ORDERED: INSULIN DETEMIR 100 UNITS/ML MDV SQ ONE (06:57)
[2017-01-20 08:24] LABS: MCH 26.3 pg (25.7-33.7); MCHC 34.6 g/dl (32.0-35.9); MEAN CELL VOLUME 76.2 fl (80-96); PLATELET COUNT 192 K/MM3 (134-434); RDW 14.7 % (11.9-15.9); WHITE BLOOD COUNT 6.3 K/mm3 (4.0-10.0)
[2017-01-20 08:54] LABS: CALCIUM 8.1 mg/dL (8.5-10.1); COCKROFT - GAULT 115.38; CREATININE 0.8 mg/dL (0.7-1.3); MAGNESIUM 2.2 mg/dL (1.8-2.4)
[2017-01-20] MEDS ORDERED: PT OWN MED DRAWER 7, Y5N ONE (09:51)
[2017-01-20] MEDS: CASPOFUNGIN ACETATE 50 MG in SODIUM CHLORIDE 250 ML IVPB SCH (09:54)
[2017-01-20] MEDS: amLODIPine BESYLATE 5 MG TABLET (FP) PO SCH (09:54)
[2017-01-20] MEDS: TAMSULOSIN HCL 0.4 MG CAP.ER.24H (FP) PO SCH (09:54)
--- NOTE | 2017-01-20 11:53 | PN ---
Physical Exam: SUBJECTIVE: Patient seen and examined Pt say he is feeling better fever overnight with Tmax 100.6 No n/v no dizziness or confusion no abdominal pain, tolerating diet well Still Complaining of soft pasty bowel movements OBJECTIVE: Vital Signs Period Temp Pulse Resp BP Sys/Wilson Pulse Ox Last 24 Hr 98.3 F-100.6 F 66-84 18-20 134-154/65-85 94 GENERAL: The patient is awake, alert, and fully oriented, in no acute distress. HEAD: Normal with no signs of trauma. LUNGS: Breath sounds equal, clear to auscultation bilaterally, no wheezes, no crackles, no accessory muscle use. HEART: Regular rate and rhythm, S1, S2 with murmur, rub or gallop. ABDOMEN: Soft, nontender, nondistended, normoactive bowel sounds, no guarding, no rebound, no hepatosplenomegaly, no masses. EXTREMITIES: 2+ pulses, warm, well-perfused, no edema. NEUROLOGICAL: Normal speech, gait not observed. PSYCH: Normal mood, normal affect. SKIN: Warm, dry, normal turgor, no rashes or lesions noted Laboratory Results - last 24 hr 01/19/17 01/19/17 01/19/17 12:04 17:33 21:35 WBC RBC Hgb Hct MCV MCHC RDW Plt Count MPV Sodium Potassium Chloride Carbon Dioxide Anion Gap BUN Creatinine POC Glucometer 154 219 232 Random Glucose Calcium Magnesium Albumin 01/20/17 01/20/17 01/20/17 06:15 06:15 06:15 WBC 6.3 RBC 3.96 L Hgb 10.4 L Hct 30.2 L MCV 76.2 L MCHC 34.6 RDW 14.7 Plt Count 192 MPV 8.0 Sodium 137 Potassium 3.6 Chloride 102 Carbon Dioxide 25 Anion Gap 10 BUN 18 Creatinine 0.8 POC Glucometer Random Glucose 185 H Calcium 8.1 L Magnesium 2.2 Albumin 2.8 L 01/20/17 06:26 WBC RBC Hgb Hct MCV MCHC RDW Plt Count MPV Sodium Potassium Chloride Carbon Dioxide Anion Gap BUN Creatinine POC Glucometer 190 Random Glucose Calcium Magnesium Albumin Active Medications Generic Name Dose Route Start Last Admin Trade Name Freq PRN Reason Stop Dose Admin Acetaminophen 650 mg 01/17/17 22:04 01/19/17 21:31 Tylenol - PO 650 mg Q4H PRN Administration FEVER Acetaminophen 650 mg 01/18/17 04:50 01/18/17 04:30 Tylenol Suppository - [place] 650 mg Q4H PRN Administration FEVER OR PAIN Amlodipine Besylate 5 mg 01/18/17 10:00 01/20/17 09:54 Norvasc - PO 5 mg DAILY [facility] Administration Atorvastatin Calcium 80 mg 01/18/17 22:00 01/19/17 21:31 Lipitor - PO 80 mg HS [facility] Administration Fentanyl 50 mcg 01/17/17 13:54 01/17/17 13:55 Sublimaze Injection - IVPUSH 01/20/17 13:55 50 mcg [id number] PRN Administration PAIN Caspofungin 50 mg/ Sodium 250 mls @ 250 mls/hr 01/20/17 10:00 01/20/17 09:54 Chloride IVPB 250 mls/hr DAILY [facility] Administration Insulin Aspart 1 vial 01/18/17 11:00 01/20/17 06:28 Novolog Vial Sliding Scale - SQ Not Given ACHS [facility] Protocol Oxycodone HCl 10 mg 01/17/17 12:53 01/17/17 16:00 Roxicodone - PO 10 mg Q4H PRN Administration PAIN Oxycodone HCl 5 mg 01/17/17 13:54 Roxicodone - PO Q4H PRN MILD PAIN Simethicone 80 mg 01/18/17 08:21 Mylicon - PO Q4H PRN bloating Tamsulosin HCl 0.4 mg 01/18/17 10:00 01/20/17 09:54 Flomax - PO 0.4 mg DAILY [facility] Administration Vancomycin HCl 125 mg 01/17/17 18:00 01/20/17 06:28 Vancomycin Oral Solution PO 125 mg Q6HPO [facility] Administration CBC, BMP 01/20/17 06:15 01/20/17 06:15 Microbiology 01/17/17 19:09 Blood - Peripheral Venous Yeast/Fungus Identification - Preliminary 01/17/17 19:09 Blood - Peripheral Venous Blood Culture - Preliminary Yeast Like Organism Selected Entries 01/19/17 22:00 Temperature 100.6 F H Laboratory Tests 01/20/17 01/20/17 06:15 06:15 Calcium 8.1 L Magnesium 2.2 Albumin 2.8 L ASSESSMENT/PLAN: 66 year old male with pmh of DM, HTN, nephrolithiasis, Cdiff present with fever and chilsl s/p Cystoscopy with stent removal Sepsis with Fungemia, unknown source once again fever overnight with Tmax 100.6 CT abdomen and pelvis showed no abscess, no pyelonephritis and s/s of infections. Blood culture positive for yeast like organism Caspofungin day 2 ID on case F/u urine culture and blood culture urology on case Abdominal Distension No free air seen on CT abdomen/pelvis No n/v no abdominal tenderness tolerating diet well on simethicone C-diff H/o of C-diff still having diarrhea, pasty stool Cdiff antigen and toxin negative Consider continuing C-diff antibiotic course as it was incomplete last time ID on case continue Po vancomycin HTN BP controlled on amlodipine 5mg PO daily DM hgA1c 7.9 Blood glucose controlled Novolog sliding scale Portable hypertension with hepatomegaly and possible liver cirrhosis hepatitis panel pending Pt denies any h/o liver disease denies h/o liver disease FEN Fluid: none Electrolytes: chemistry in am Nutrition: diabetic diet DVT prophylaxis: SCD Disposition: Keep in medsurg pending resolution of sepsis Visit type - Emergency Visit Emergency Visit: Yes ED Registration Date: 01/17/17 Care time: The patient presented to the Emergency Department on the above date and was hospitalized for further evaluation of their emergent condition. - New Patient This patient is new to me today: Yes - Critical Care Critical Care patient: No - Discharge Referral Referred to [facility] No
--- NOTE | 2017-01-20 13:27 | PN ---
Teaching Attending Note Name of Resident: Chalino Zavala ATTENDING PHYSICIAN STATEMENT I saw and evaluated the patient. I reviewed the resident's note and discussed the case with the resident. I agree with the resident's findings and plan as documented. SUBJECTIVE:states he feels great and wants to go home. continues to have loose stools but states they are less frequent. hematuria resolved. denies CP, SOB, fever, chills, N/V/C states he does not feel as his stomach is distended OBJECTIVE: Last Vital Signs Temp Pulse Resp BP Pulse Ox 98.4 F 78 20 125/65 94 L 01/20/17 09:00 01/20/17 09:00 01/20/17 09:00 01/20/17 09:00 01/19/17 21:00 General NAD A&Ox2 (self and location) CV S1 S2 RRR +murmur no rubs or gallops Abdomen +distended soft +BS no rebound or guarding Extremities no pedal edema ASSESSMENT AND PLAN: 66yo M with PMH DM, NPH, HTN, nephrolithasis and cdiff was admitted for post-op fever and chills after ureteral stent removal and lithortipsy 1. Sepsis due to fungemia-Suspicion of UTI however cx negative. BCx with fungemia. started on Caspofungin day2. repeat cx sent today. optho consulted to evaluate for eye involvement. wait for final Cx report. 2. abdominal distention- no signs of acute abdomen. tolerating diet. monitor for now as tolerating diet 3. Nephrolithasis with stent placement- now removal. stone pathology pending. choi per urology. on flomax 4. Hypokalemia- resolved 5. Portal HTN-seen on CT scan. pt has no recollection of being told of cirrhosis or portal HTN. denies heavy ETOH use. hepatitis panel pending. obtain collateral records from PMD on Friday. hepatitis panel pending 6. Cdiff- cdiff here negative. continues to have soft stool. contact precautions 7. HTN- improved. cont norvasc 8. DM- A1c 7.9. hold oral agents in setting of recent contrast exposure. iss, bgm 9. DVT ppx- SCD. hold pharmacologic in setting of active hematuria.
--- NOTE | 2017-01-20 13:40 | PN ---
Progress Note (short form) - Note Progress Note: awake and alert fever curve trending down no visual complaints no prosthetic devices Vital Signs Period Temp Pulse Resp BP Sys/Wilson Pulse Ox Last 24 Hr 98.3 F-100.6 F 66-84 20-20 125-154/65-85 94 cor-rrr lungs clear abd soft,nt ext no edema +choi CBC, BMP 01/20/17 06:15 01/20/17 06:15 Microbiology 01/17/17 19:09 Blood - Peripheral Venous Yeast/Fungus Identification - Preliminary 01/17/17 19:09 Blood - Peripheral Venous Blood Culture - Preliminary Yeast Like Organism 01/17/17 19:09 Blood - Peripheral Venous Blood Culture - Preliminary NO GROWTH OBTAINED AFTER 48 HOURS, INCUBATION TO CONTINUE FOR 3 DAYS. 01/18/17 00:12 Urine - Urine Choi Urine Culture - Final NO GROWTH OBTAINED 01/18/17 04:30 Stool Clostridium difficile Antigen (LAURA) - Final 01/18/17 04:30 Stool Clostridium difficile Toxin Assay - Final a/p sepsis s/p cystoscopy 01/17 and stent removal Fungemia- cancidas day #2 repeat blood cultures sent tidat should be seen by opthomology cdiff- by history continue po vancomycin ?liver cirrhosis/portal HTN- noted on ct scan d/w patient d/w at [facility] all questions answered
--- NOTE | 2017-01-20 13:53 | PATH ---
Surgical Pathology Report Patient Name: SWETHA MENDEZ Med. Rec. #: [id number] /Age/Gender: 1950 (Age: 66) / M Account: [id number] Location: [facility] MED/SURG Taken: 01/17/2017 Received: 01/17/2017 Reported: 01/20/2017 Physicians: Juvenal Reyes M.D. Specimen(s) Received URETERAL STONES Clinical History Ureteral stones Final Diagnosis URETERAL STONES, EXTRACTION: CALCULI (GROSS EXAM). SPECIMEN SENT FOR CHEMICAL ANALYSIS. Electronically Signed Sam Gutierrez M.D. Gross Description Received fresh labeled "ureteral stones" are 9 lynn, irregular calculi ranging from 0.1-0.2 cm in greatest dimension. The specimen is sent for chemical analysis. DL/01/17/201701/17/2017
[2017-01-20] MEDS: ATORVASTATIN CA 80 MG TABLET (FP) PO SCH (22:10)
[2017-01-20] MEDS: ACETAMINOPHEN 325 MG TABLET (FP) PO PRN (22:11)
[2017-01-21] MEDS: VANCOMYCIN 250 MG/5 ML ORAL SOLUTION PO SCH ×5 (00:32→23:55)
[2017-01-21] MEDS: INSULIN SLIDING SCALE (NOVOLOG) 1 VIAL SQ SCH ×4 (07:07→22:11)
--- NOTE | 2017-01-21 08:00 | PN ---
Progress Note (short form) - Note Progress Note: afebrile urine clear no abdominal pain/distention d/c choi for voiding trial antifungal tx as per ID
[2017-01-21] MEDS ORDERED: PT OWN MED DRAWER 7, Y5N ONE ×2 (09:56→10:02)
[2017-01-21] MEDS: amLODIPine BESYLATE 5 MG TABLET (FP) PO SCH (10:08)
[2017-01-21] MEDS: TAMSULOSIN HCL 0.4 MG CAP.ER.24H (FP) PO SCH (10:08)
[2017-01-21] MEDS: CASPOFUNGIN ACETATE 50 MG in SODIUM CHLORIDE 250 ML IVPB SCH (11:36)
--- NOTE | 2017-01-21 15:00 | PN ---
Physical Exam: SUBJECTIVE: Patient seen and examined Pt is feeling comfortable NO s/s of distress Pt is happy that he no longer has choi cath No fever, no chills overnight Still complaining of watery stool no n/v no abdominal pain OBJECTIVE: Vital Signs Period Temp Pulse Resp BP Sys/Wilson Pulse Ox Last 24 Hr 98 F-98.9 F 66-87 16-20 141-176/72-99 GENERAL: The patient is awake, alert, and fully oriented, in no acute distress. HEAD: Normal with no signs of trauma. LUNGS: Breath sounds equal, clear to auscultation bilaterally, no wheezes, no crackles, no accessory muscle use. HEART: Regular rate and rhythm, S1, S2 with murmur, rub or gallop. ABDOMEN: Soft, nontender, nondistended, normoactive bowel sounds, no guarding, no rebound, no hepatosplenomegaly, no masses. EXTREMITIES: 2+ pulses, warm, well-perfused, no edema. NEUROLOGICAL: Normal speech, gait not observed. PSYCH: Normal mood, normal affect. SKIN: Warm, dry, normal turgor, no rashes or lesions noted Laboratory Results - last 24 hr 01/20/17 01/20/17 01/21/17 16:50 21:59 07:03 POC Glucometer 245 192 201 01/21/17 11:52 POC Glucometer 227 Active Medications Generic Name Dose Route Start Last Admin Trade Name Freq PRN Reason Stop Dose Admin Acetaminophen 650 mg 01/17/17 22:04 01/20/17 22:11 Tylenol - PO 650 mg Q4H PRN Administration FEVER Acetaminophen 650 mg 01/18/17 04:50 01/18/17 04:30 Tylenol Suppository - [place] 650 mg Q4H PRN Administration FEVER OR PAIN Amlodipine Besylate 5 mg 01/18/17 10:00 01/21/17 10:08 Norvasc - PO 5 mg DAILY [facility] Administration Atorvastatin Calcium 80 mg 01/18/17 22:00 01/20/17 22:10 Lipitor - PO 80 mg HS [facility] Administration Caspofungin 50 mg/ Sodium 250 mls @ 250 mls/hr 01/20/17 10:00 01/21/17 11:36 Chloride IVPB 250 mls/hr DAILY [facility] Administration Insulin Aspart 1 vial 01/18/17 11:00 01/21/17 12:00 Novolog Vial Sliding Scale - SQ 2 units ACHS [facility] Administration Protocol Oxycodone HCl 10 mg 01/17/17 12:53 01/17/17 16:00 Roxicodone - PO 10 mg Q4H PRN Administration PAIN Oxycodone HCl 5 mg 01/17/17 13:54 Roxicodone - PO Q4H PRN MILD PAIN Simethicone 80 mg 01/18/17 08:21 Mylicon - PO Q4H PRN bloating Tamsulosin HCl 0.4 mg 01/18/17 10:00 01/21/17 10:08 Flomax - PO 0.4 mg DAILY [facility] Administration Vancomycin HCl 125 mg 01/17/17 18:00 01/21/17 12:00 Vancomycin Oral Solution PO 125 mg Q6HPO [facility] Administration CBC, BMP 01/20/17 06:15 01/20/17 06:15 Microbiology 01/17/17 19:09 Blood - Peripheral Venous Blood Culture - Final Yeast Like Organism 01/20/17 06:15 Blood - Peripheral Venous Blood Culture - Preliminary NO GROWTH OBTAINED AFTER 24 HOURS, INCUBATION TO CONTINUE FOR 4 DAYS. 01/20/17 06:15 Blood - Peripheral Venous Blood Culture - Preliminary NO GROWTH OBTAINED AFTER 24 HOURS, INCUBATION TO CONTINUE FOR 4 DAYS. ASSESSMENT/PLAN: 66 year old male with pmh of DM, HTN, nephrolithiasis, Cdiff present with fever and chills s/p Cystoscopy with stent removal Sepsis with Fungemia, unknown source NO fever overnight CT abdomen and pelvis showed no abscess, no pyelonephritis and s/s of infections. Blood culture positive for yeast like organism Caspofungin day 3 ID on case urine culture negative F/u new blood culture done yesterday, so far negative for 24 hours urology on case Ophtalmology consulted Abdominal Distension No free air seen on CT abdomen/pelvis No n/v no abdominal tenderness tolerating diet well on simethicone C-diff H/o of C-diff still having diarrhea, pasty stool Cdiff antigen and toxin negative Consider continuing C-diff antibiotic course as it was incomplete last time ID on case continue Po vancomycin HTN BP controlled on amlodipine 5mg PO daily DM hgA1c 7.9 Blood glucose controlled Novolog sliding scale Portable hypertension with hepatomegaly and possible liver cirrhosis hepatitis panel pending Pt denies any h/o liver disease denies h/o liver disease FEN Fluid: none Electrolytes: chemistry in am Nutrition: diabetic diet DVT prophylaxis: SCD Disposition: Keep in medsurg pending resolution of sepsis Visit type - Emergency Visit Emergency Visit: Yes ED Registration Date: 01/17/17 Care time: The patient presented to the Emergency Department on the above date and was hospitalized for further evaluation of their emergent condition. - New Patient This patient is new to me today: Yes Date on this admission: 01/21/17 - Critical Care Critical Care patient: No - Discharge Referral Referred to [facility] No
--- NOTE | 2017-01-21 15:39 | PN ---
Progress Note (short form) - Note Progress Note: awake and alert 2 BMS today choi out voiding well anxious to go home Vital Signs Period Temp Pulse Resp BP Sys/Wilson Pulse Ox Last 24 Hr 98 F-98.9 F 66-80 18-20 141-176/74-99 cor-rrr lungs clear abd soft,nt ext no edema CBC, BMP 01/20/17 06:15 01/20/17 06:15 Microbiology 01/17/17 19:09 Blood - Peripheral Venous Blood Culture - Final Yeast Like Organism 01/20/17 06:15 Blood - Peripheral Venous Blood Culture - Preliminary NO GROWTH OBTAINED AFTER 24 HOURS, INCUBATION TO CONTINUE FOR 4 DAYS. 01/20/17 06:15 Blood - Peripheral Venous Blood Culture - Preliminary NO GROWTH OBTAINED AFTER 24 HOURS, INCUBATION TO CONTINUE FOR 4 DAYS. 01/17/17 19:09 Blood - Peripheral Venous Blood Culture - Preliminary NO GROWTH OBTAINED AFTER 72 HOURS, INCUBATION TO CONTINUE FOR 2 DAYS. 01/17/17 19:09 Blood - Peripheral Venous Yeast/Fungus Identification - Preliminary 01/18/17 00:12 Urine - Urine Choi Urine Culture - Final NO GROWTH OBTAINED 01/18/17 04:30 Stool Clostridium difficile Antigen (LAURA) - Final 01/18/17 04:30 Stool Clostridium difficile Toxin Assay - Final a/p sepsis s/p cystoscopy 01/17 and stent removal Fungemia- cancidas day #3 repeat blood cultures sent should be seen by opthomology cdiff- by history continue po vancomycin ?liver cirrhosis/portal HTN- noted on ct scan d/w patient
--- NOTE | 2017-01-21 17:37 | PN ---
Teaching Attending Note Name of Resident: Chalino Zavala ATTENDING PHYSICIAN STATEMENT I saw and evaluated the patient. I reviewed the resident's note and discussed the case with the resident. I agree with the resident's findings and plan as documented. SUBJECTIVE: Patient wants to go home. OBJECTIVE: Vital Signs Period Temp Pulse Resp BP Sys/Wilson Pulse Ox Last 24 Hr 98 F-98.9 F 66-104 16-20 141-176/74-88 HEART: S1S2, RRR, (+) 2/6 systolic murmur LUNGS: Clear ABDOMEN: Soft, non-tender, non-distended, normal BS EXTREMITIES: No edema ASSESSMENT AND PLAN: This is a 66-year-old man with a history of type 2 DM, NPH, HTN, kidney stones, C. diff colitis who was admitted for fever and chills after cystoscopy, left ureteral stent removal and and stone manipulation. 1. Sepsis secondary to fungemia - Possible urinary source - Continue Cancidas - Repeat blood cultures pending 2. Nephrolithasis, s/p stent placement and removal, stone manipulation - García has been removed - Continue Flomax 3. Hypokalemia - Resolved 4. Portal HTN - Hepatitis panel pending 5. History of C. difficile colitis - Continue PO Vancomycin 6. HTN - Continue Norvasc 7. Type 2 DM - Continue Novolog sliding scale 8. Hyperlipidemia - Continue Lipitor
[2017-01-21] MEDS: ACETAMINOPHEN 325 MG TABLET (FP) PO PRN (19:37)
[2017-01-21] MEDS ORDERED: MELATONIN 5 MG TABLETS PO ONE (20:28)
[2017-01-21] MEDS: ATORVASTATIN CA 80 MG TABLET (FP) PO SCH (22:11)
[2017-01-22] MEDS ORDERED: PT OWN MED DRAWER 7, Y5N ONE ×2 (05:53→12:15)
[2017-01-22] MEDS: INSULIN SLIDING SCALE (NOVOLOG) 1 VIAL SQ SCH ×4 (06:12→22:25)
[2017-01-22] MEDS: VANCOMYCIN 250 MG/5 ML ORAL SOLUTION PO SCH ×3 (06:13→17:26)
[2017-01-22] MEDS: TAMSULOSIN HCL 0.4 MG CAP.ER.24H (FP) PO SCH (10:34)
[2017-01-22] MEDS: amLODIPine BESYLATE 5 MG TABLET (FP) PO SCH (10:34)
[2017-01-22] MEDS: CASPOFUNGIN ACETATE 50 MG in SODIUM CHLORIDE 250 ML IVPB SCH (10:36)
[2017-01-22] MEDS ORDERED: INSULIN (NOVOLOG) ASPART 100 UNITS/ML 10ML VIAL ONE ×2 (12:16→21:53)
--- NOTE | 2017-01-22 16:09 | PN ---
Physical Exam: SUBJECTIVE: Patient seen and examined Pt is awake, alert and oriented No fever or chills no chest pain or palpitation No n/v Pt is complaining of multiple episode of urinary incontinence OBJECTIVE: Vital Signs Period Temp Pulse Resp BP Sys/Wilson Pulse Ox Last 24 Hr 97.7 F-99.0 F 63-88 16-18 134-151/73-79 96-98 GENERAL: The patient is awake, alert, and fully oriented, in no acute distress. HEAD: Normal with no signs of trauma. LUNGS: Breath sounds equal, clear to auscultation bilaterally, no wheezes, no crackles, no accessory muscle use. HEART: Regular rate and rhythm, S1, S2 with murmur, rub or gallop. ABDOMEN: Soft, nontender, distended, normoactive bowel sounds, no guarding, no rebound, no hepatosplenomegaly, no masses. EXTREMITIES: 2+ pulses, warm, well-perfused, no edema. NEUROLOGICAL: Normal speech, gait not observed. PSYCH: Normal mood, normal affect. SKIN: Warm, dry, normal turgor, no rashes or lesions noted Laboratory Results - last 24 hr 01/21/17 01/21/17 01/22/17 17:07 22:10 06:11 POC Glucometer 226 220 195 01/22/17 11:53 POC Glucometer 206 Active Medications Generic Name Dose Route Start Last Admin Trade Name Freq PRN Reason Stop Dose Admin Acetaminophen 650 mg 01/17/17 22:04 01/21/17 19:37 Tylenol - PO 650 mg Q4H PRN Administration FEVER Acetaminophen 650 mg 01/18/17 04:50 01/18/17 04:30 Tylenol Suppository - CA 650 mg Q4H PRN Administration FEVER OR PAIN Amlodipine Besylate 5 mg 01/18/17 10:00 01/22/17 10:34 Norvasc - PO 5 mg DAILY EUGENE Administration Atorvastatin Calcium 80 mg 01/18/17 22:00 01/21/17 22:11 Lipitor - PO 80 mg HS EUGENE Administration Caspofungin 50 mg/ Sodium 250 mls @ 250 mls/hr 01/20/17 10:00 01/22/17 10:36 Chloride IVPB 250 mls/hr DAILY EUGENE Administration Insulin Aspart 1 vial 01/18/17 11:00 01/22/17 12:23 Novolog Vial Sliding Scale - SQ 2 units ACHS EUGENE Administration Protocol Oxycodone HCl 10 mg 01/17/17 12:53 01/17/17 16:00 Roxicodone - PO 10 mg Q4H PRN Administration PAIN Oxycodone HCl 5 mg 01/17/17 13:54 Roxicodone - PO Q4H PRN MILD PAIN Simethicone 80 mg 01/18/17 08:21 Mylicon - PO Q4H PRN bloating Tamsulosin HCl 0.4 mg 01/18/17 10:00 01/22/17 10:34 Flomax - PO 0.4 mg DAILY EUGENE Administration Vancomycin HCl 125 mg 01/17/17 18:00 01/22/17 12:23 Vancomycin Oral Solution PO 125 mg Q6HPO EUGENE Administration CBC, BMP 01/20/17 06:15 01/20/17 06:15 ASSESSMENT/PLAN: 66 year old male with pmh of DM, HTN, nephrolithiasis, Cdiff present with fever and chills s/p Cystoscopy with stent removal Sepsis with Fungemia, unknown source NO fever overnight CT abdomen and pelvis showed no abscess, no pyelonephritis and s/s of infections. Blood culture positive for yeast like organism Caspofungin day 4 ID on case urine culture negative F/u new blood culture done yesterday, so far negative for 48 hours urology on case Ophtalmology consulted Urinary Incontinence Bladder scan Recall Dr Pineda Abdominal Distension No free air seen on CT abdomen/pelvis No n/v no abdominal tenderness tolerating diet well on simethicone C-diff H/o of C-diff still having diarrhea, pasty stool Cdiff antigen and toxin negative Consider continuing C-diff antibiotic course as it was incomplete last time ID on case continue Po vancomycin HTN BP controlled on amlodipine 5mg PO daily DM hgA1c 7.9 Blood glucose controlled Novolog sliding scale Portable hypertension with hepatomegaly and possible liver cirrhosis hepatitis panel pending Pt denies any h/o liver disease denies h/o liver disease Outpatient GI follow Up FEN Fluid: none Electrolytes: chemistry in am Nutrition: diabetic diet DVT prophylaxis: SCD Disposition: Keep in medsurg pending resolution of sepsis Visit type - Emergency Visit Emergency Visit: Yes ED Registration Date: 01/17/17 Care time: The patient presented to the Emergency Department on the above date and was hospitalized for further evaluation of their emergent condition. - New Patient This patient is new to me today: Yes - Critical Care Critical Care patient: No - Discharge Referral Referred to [facility] Med P.C.: No
--- NOTE | 2017-01-22 16:11 | PN ---
Progress Note (short form) - Note Progress Note: awake and alert anxious to go home Vital Signs Period Temp Pulse Resp BP Sys/Wilson Pulse Ox Last 24 Hr 97.7 F-99.0 F 63-88 16-18 134-151/73-79 96-98 cor-rrr lungs clear abd soft,nt ext no edema CBC, BMP 01/20/17 06:15 01/20/17 06:15 Microbiology 01/17/17 19:09 Blood - Peripheral Venous Blood Culture - Final Yeast Like Organism 01/20/17 06:15 Blood - Peripheral Venous Blood Culture - Preliminary NO GROWTH OBTAINED AFTER 48 HOURS, INCUBATION TO CONTINUE FOR 3 DAYS. 01/20/17 06:15 Blood - Peripheral Venous Blood Culture - Preliminary NO GROWTH OBTAINED AFTER 48 HOURS, INCUBATION TO CONTINUE FOR 3 DAYS. 01/17/17 19:09 Blood - Peripheral Venous Blood Culture - Final Yeast Like Organism 01/17/17 19:09 Blood - Peripheral Venous Yeast/Fungus Identification - Preliminary 01/18/17 00:12 Urine - Urine García Urine Culture - Final NO GROWTH OBTAINED 01/18/17 04:30 Stool Clostridium difficile Antigen (LAURA) - Final 01/18/17 04:30 Stool Clostridium difficile Toxin Assay - Final echo negative a/p sepsis s/p cystoscopy 01/17 and stent removal Fungemia- cancidas day #4 repeat blood cultures sent should be seen by opthomology awaiting ID of yeast in blood culture cdiff- by history continue po vancomycin ?liver cirrhosis/portal HTN- noted on ct scan d/w patient
--- NOTE | 2017-01-22 17:49 | PN ---
Teaching Attending Note Name of Resident: Chalino Zavala ATTENDING PHYSICIAN STATEMENT I saw and evaluated the patient. I reviewed the resident's note and discussed the case with the resident. I agree with the resident's findings and plan as documented. SUBJECTIVE: Patient complaining of urinary incontinence. OBJECTIVE: Vital Signs Period Temp Pulse Resp BP Sys/Wilson Pulse Ox Last 24 Hr 97.7 F-98.6 F 63-88 16-18 138-151/73-74 96-98 HEART: S1S2, RRR, (+) 2/6 systolic murmur LUNGS: Clear ABDOMEN: Soft, non-tender, non-distended, normal BS EXTREMITIES: No edema ASSESSMENT AND PLAN: This is a 66-year-old man with a history of type 2 DM, NPH, HTN, kidney stones, C. diff colitis who was admitted for fever and chills after cystoscopy, left ureteral stent removal and and stone manipulation. 1. Sepsis secondary to fungemia - Possible urinary source - Continue Cancidas - Repeat blood cultures negative so far 2. Nephrolithiasis, s/p stent placement and removal, stone manipulation, now with incontinence of urine - García has been removed - Continue Flomax - Urology follow-up 3. Hypokalemia - Resolved 4. Portal HTN - Hepatitis panel negative 5. History of C. difficile colitis - Continue PO Vancomycin 6. HTN - Continue Norvasc 7. Type 2 DM - Continue Novolog sliding scale 8. Hyperlipidemia - Continue Lipitor
[2017-01-22] MEDS: ATORVASTATIN CA 80 MG TABLET (FP) PO SCH (22:25)
[2017-01-22] MEDS: diphenhydrAMINE HCL 25 MG CAPSULE (FP) PO SCH (22:25)
[2017-01-23] MEDS: VANCOMYCIN 250 MG/5 ML ORAL SOLUTION PO SCH ×4 (00:05→17:21)
[2017-01-23] MEDS: INSULIN SLIDING SCALE (NOVOLOG) 1 VIAL SQ SCH ×4 (06:29→21:57)
[2017-01-23] MEDS ORDERED: PT OWN MED DRAWER 7, Y5N ONE (10:13)
[2017-01-23] MEDS: LACTOBACILLUS ACIDOPHILUS 1 EACH TAB (FP) PO SCH (10:16)
[2017-01-23] MEDS: TAMSULOSIN HCL 0.4 MG CAP.ER.24H (FP) PO SCH (10:16)
[2017-01-23] MEDS: amLODIPine BESYLATE 5 MG TABLET (FP) PO SCH (10:17)
[2017-01-23] MEDS ORDERED: amLODIPine BESYLATE 5 MG TABLET (FP) PO SCH (10:34)
[2017-01-23] MEDS ORDERED: amLODIPine BESYLATE 5 MG TABLET (FP) PO ONE (10:35)
[2017-01-23] MEDS: CASPOFUNGIN ACETATE 50 MG in SODIUM CHLORIDE 250 ML IVPB SCH (10:38)
--- NOTE | 2017-01-23 12:58 | PN ---
Progress Note (short form) - Note Progress Note: afebrile urine clear voiding spontaneously no bladder distention antifungal tx as per ID
--- NOTE | 2017-01-23 14:40 | PN ---
Progress Note (short form) - Note Progress Note: awake and alert anxious to go home Vital Signs Period Temp Pulse Resp BP Sys/Wilson Pulse Ox Last 24 Hr 97.9 F-98.8 F 60-72 18-20 140-172/68-88 97 cor-rrr lungs clear abd soft,nt ext no edema echo negative Microbiology 01/17/17 19:09 Blood - Peripheral Venous Yeast/Fungus Identification - Final Maryan Albicans 01/20/17 06:15 Blood - Peripheral Venous Blood Culture - Preliminary NO GROWTH OBTAINED AFTER 72 HOURS, INCUBATION TO CONTINUE FOR 2 DAYS. 01/20/17 06:15 Blood - Peripheral Venous Blood Culture - Preliminary NO GROWTH OBTAINED AFTER 72 HOURS, INCUBATION TO CONTINUE FOR 2 DAYS. 01/21/17 18:25 Blood - Peripheral Venous Blood Culture - Preliminary NO GROWTH OBTAINED AFTER 24 HOURS, INCUBATION TO CONTINUE FOR 4 DAYS. 01/21/17 18:25 Blood - Peripheral Venous Blood Culture - Preliminary NO GROWTH OBTAINED AFTER 24 HOURS, INCUBATION TO CONTINUE FOR 4 DAYS. 01/17/17 19:09 Blood - Peripheral Venous Blood Culture - Final Yeast Like Organism 01/17/17 19:09 Blood - Peripheral Venous Blood Culture - Final Yeast Like Organism 01/18/17 00:12 Urine - Urine García Urine Culture - Final NO GROWTH OBTAINED 01/18/17 04:30 Stool Clostridium difficile Antigen (LAURA) - Final 01/18/17 04:30 Stool Clostridium difficile Toxin Assay - Final Current Medications Acetaminophen (Tylenol -) 650 mg PO Q4H PRN PRN Reason: FEVER Last Admin: 01/21/17 19:37 Dose: 650 mg Acetaminophen (Tylenol Suppository -) 650 mg NE Q4H PRN PRN Reason: FEVER OR PAIN Last Admin: 01/18/17 04:30 Dose: 650 mg Amlodipine Besylate (Norvasc -) 10 mg PO DAILY EUGENE Atorvastatin Calcium (Lipitor -) 80 mg PO HS EUGENE Last Admin: 01/22/17 22:25 Dose: 80 mg Diphenhydramine HCl (Benadryl -) 25 mg PO HS EUGENE Last Admin: 01/22/17 22:25 Dose: 25 mg Caspofungin 50 mg/ Sodium (Chloride) 250 mls @ 250 mls/hr IVPB DAILY EUGENE Last Admin: 01/23/17 10:38 Dose: 250 mls/hr Insulin Aspart (Novolog Vial Sliding Scale -) 1 vial SQ ACHS EUGENE PRN Reason: Protocol Last Admin: 01/23/17 11:36 Dose: 6 units Lactobacillus Acidophilus (Bacid -) 1 tab PO DAILY [facility] Last Admin: 01/23/17 10:16 Dose: 1 tab Oxycodone HCl (Roxicodone -) 10 mg PO Q4H PRN PRN Reason: PAIN Last Admin: 01/17/17 16:00 Dose: 10 mg Oxycodone HCl (Roxicodone -) 5 mg PO Q4H PRN PRN Reason: MILD PAIN Simethicone (Mylicon -) 80 mg PO Q4H PRN PRN Reason: bloating Tamsulosin HCl (Flomax -) 0.4 mg PO DAILY [facility] Last Admin: 01/23/17 10:16 Dose: 0.4 mg Vancomycin HCl (Vancomycin Oral Solution) 125 mg PO Q6HPO [facility] Last Admin: 01/23/17 11:23 Dose: 125 mg a/p sepsis s/p cystoscopy 01/17 and stent removal Fungemia- cancidas day #5 repeat blood cultures negative to date should be seen by opthomology maryan albicans! finish 7 days iv treatment and then home on po diflucan 400 daily for 14 days should have f/u labs including LFTS as outpt could go home after dose on Friday check labs in am cdiff- by history continue po vancomycin another 48 hours then d/c diarrhea has resolved ?liver cirrhosis/portal HTN- noted on ct scan d/w patient Problem List - Problems (1) Sepsis Code(s): A41.9 - SEPSIS, UNSPECIFIED ORGANISM (2) Fungemia Code(s): B49 - UNSPECIFIED MYCOSIS (3) C. difficile colitis Code(s): A04.7 - ENTEROCOLITIS DUE TO CLOSTRIDIUM DIFFICILE
--- NOTE | 2017-01-23 16:03 | PN ---
Physical Exam: SUBJECTIVE: Patient seen and examined Pt denies fever and chills No n/v No abdominal pain No dizziness or confusion no dysuria No hematuria OBJECTIVE: Vital Signs Period Temp Pulse Resp BP Sys/Wilson Pulse Ox Last 24 Hr 97.9 F-98.8 F 60-72 18-20 140-172/68-88 97 GENERAL: The patient is awake, alert, and fully oriented, in no acute distress. HEAD: Normal with no signs of trauma. LUNGS: Breath sounds equal, clear to auscultation bilaterally, no wheezes, no crackles, no accessory muscle use. HEART: Regular rate and rhythm, S1, S2 with murmur, rub or gallop. ABDOMEN: Soft, nontender, obese , normoactive bowel sounds, no guarding, no rebound, no hepatosplenomegaly, no masses. EXTREMITIES: 2+ pulses, warm, well-perfused, no edema. NEUROLOGICAL: Normal speech, gait not observed. PSYCH: Normal mood, normal affect. SKIN: Warm, dry, normal turgor, no rashes or lesions noted Laboratory Results - last 24 hr 01/22/17 01/22/17 01/23/17 17:22 22:20 05:45 POC Glucometer 201 277 199 01/23/17 11:24 POC Glucometer 308 Active Medications Generic Name Dose Route Start Last Admin Trade Name Freq PRN Reason Stop Dose Admin Acetaminophen 650 mg 01/17/17 22:04 01/21/17 19:37 Tylenol - PO 650 mg Q4H PRN Administration FEVER Acetaminophen 650 mg 01/18/17 04:50 01/18/17 04:30 Tylenol Suppository - GA 650 mg Q4H PRN Administration FEVER OR PAIN Amlodipine Besylate 10 mg 01/24/17 10:00 Norvasc - PO DAILY EUGENE Atorvastatin Calcium 80 mg 01/18/17 22:00 01/22/17 22:25 Lipitor - PO 80 mg HS EUGENE Administration Diphenhydramine HCl 25 mg 01/22/17 22:00 01/22/17 22:25 Benadryl - PO 25 mg HS EUGENE Administration Caspofungin 50 mg/ Sodium 250 mls @ 250 mls/hr 01/20/17 10:00 01/23/17 10:38 Chloride IVPB 250 mls/hr DAILY EUGENE Administration Insulin Aspart 1 vial 01/18/17 11:00 01/23/17 11:36 Novolog Vial Sliding Scale - SQ 6 units ACHS EUGENE Administration Protocol Lactobacillus Acidophilus 1 tab 01/23/17 10:00 01/23/17 10:16 Bacid - PO 1 tab DAILY EUGENE Administration Oxycodone HCl 10 mg 01/17/17 12:53 01/17/17 16:00 Roxicodone - PO 10 mg Q4H PRN Administration PAIN Oxycodone HCl 5 mg 01/17/17 13:54 Roxicodone - PO Q4H PRN MILD PAIN Simethicone 80 mg 01/18/17 08:21 Mylicon - PO Q4H PRN bloating Tamsulosin HCl 0.4 mg 01/18/17 10:00 01/23/17 10:16 Flomax - PO 0.4 mg DAILY EUGENE Administration Vancomycin HCl 125 mg 01/17/17 18:00 01/23/17 11:23 Vancomycin Oral Solution PO 125 mg Q6HPO EUGENE Administration CBC, BMP 01/20/17 06:15 01/20/17 06:15 Microbiology 01/17/17 19:09 Blood - Peripheral Venous Yeast/Fungus Identification - Final Maryan Albicans 01/17/17 19:09 Blood - Peripheral Venous Blood Culture - Final Yeast Like Organism 01/17/17 19:09 Blood - Peripheral Venous Blood Culture - Final Yeast Like Organism 01/21/17 18:25 Blood - Peripheral Venous Blood Culture - Preliminary NO GROWTH OBTAINED AFTER 24 HOURS, INCUBATION TO CONTINUE FOR 4 DAYS. 01/21/17 18:25 Blood - Peripheral Venous Blood Culture - Preliminary NO GROWTH OBTAINED AFTER 24 HOURS, INCUBATION TO CONTINUE FOR 4 DAYS. 01/20/17 06:15 Blood - Peripheral Venous Blood Culture - Preliminary NO GROWTH OBTAINED AFTER 72 HOURS, INCUBATION TO CONTINUE FOR 2 DAYS. 01/20/17 06:15 Blood - Peripheral Venous Blood Culture - Preliminary NO GROWTH OBTAINED AFTER 72 HOURS, INCUBATION TO CONTINUE FOR 2 DAYS. Laboratory Tests 01/20/17 06:15 Calcium 8.1 L Magnesium 2.2 ASSESSMENT/PLAN: 66 year old male with pmh of DM, HTN, nephrolithiasis, Cdiff present with fever and chills s/p Cystoscopy with stent removal Sepsis with Fungemia, unknown source NO fever overnight CT abdomen and pelvis showed no abscess, no pyelonephritis and s/s of infections. Blood culture positive for yeast like organism Caspofungin day 5 ID on case Pt will need a course of 7 days of IV antifungal (caspofungin) after which pt will need to complete 14 days of PO antifungal urine culture negative F/u blood culture on 01/20/17, so far negative for 72 hours Blood culture on 01/21/17, so far negative for 24 hours urology on case, no further inpatient urological intervention necessary Ophthalmology consulted Urinary Incontinence (resolved) Bladder scan showed no urinary retention Dr Pineda, no further intervention Abdominal Distension No free air seen on CT abdomen/pelvis No n/v no abdominal tenderness tolerating diet well on simethicone C-diff H/o of C-diff still having diarrhea, pasty stool Cdiff antigen and toxin negative continuing C-diff antibiotic course as it was incomplete last time ID on case continue Po vancomycin, currently on day 7 HTN BP controlled on amlodipine 10mg PO daily DM hgA1c 7.9 Blood glucose controlled Novolog sliding scale Portable hypertension with hepatomegaly and possible liver cirrhosis hepatitis panel pending Pt denies any h/o liver disease denies h/o liver disease Outpatient GI follow Up FEN Fluid: none Electrolytes: no abnormalities Nutrition: diabetic diet DVT prophylaxis: SCD Disposition: Completing course of antifungal for sepsis fungemia Visit type - Emergency Visit Emergency Visit: Yes ED Registration Date: 01/17/17 Care time: The patient presented to the Emergency Department on the above date and was hospitalized for further evaluation of their emergent condition. - New Patient This patient is new to me today: Yes - Critical Care Critical Care patient: No - Discharge Referral Referred to [facility] Med P.C.: No
--- NOTE | 2017-01-23 16:09 | PN ---
Teaching Attending Note Name of Resident: Chalino Zavala ATTENDING PHYSICIAN STATEMENT I saw and evaluated the patient. I reviewed the resident's note and discussed the case with the resident. I agree with the resident's findings and plan as documented. SUBJECTIVE: Patient has no complaints. Urinary incontinence improved. OBJECTIVE: Vital Signs Period Temp Pulse Resp BP Sys/Wilson Pulse Ox Last 24 Hr 97.9 F-98.8 F 60-72 18-20 140-172/68-88 97 HEART: S1S2, RRR, (+) 2/6 systolic murmur LUNGS: Clear ABDOMEN: Soft, non-tender, non-distended, normal BS EXTREMITIES: No edema ASSESSMENT AND PLAN: This is a 66-year-old man with a history of type 2 DM, NPH, HTN, kidney stones, C. diff colitis who was admitted for fever and chills after cystoscopy, left ureteral stent removal and and stone manipulation. 1. Sepsis secondary to fungemia with Maryan albicans - Possible urinary source - Continue Cancidas (day 5/7), then Diflucan 400 mg PO daily x 14 days - Repeat blood cultures negative 2. Nephrolithiasis, s/p stent placement and removal, stone manipulation - Continue Flomax 3. Hypokalemia - Resolved 4. Portal HTN - Hepatitis panel negative 5. History of C. difficile colitis - Continue PO Vancomycin 6. HTN - Continue Norvasc 7. Type 2 DM - Continue Novolog sliding scale 8. Hyperlipidemia - Continue Lipitor
[2017-01-23] MEDS: diphenhydrAMINE HCL 25 MG CAPSULE (FP) PO SCH (21:57)
[2017-01-23] MEDS: ATORVASTATIN CA 80 MG TABLET (FP) PO SCH (21:57)
[2017-01-24] MEDS: VANCOMYCIN 250 MG/5 ML ORAL SOLUTION PO SCH ×3 (00:02→12:23)
[2017-01-24] MEDS: INSULIN SLIDING SCALE (NOVOLOG) 1 VIAL SQ SCH ×4 (06:28→22:30)
[2017-01-24 07:57] LABS: MCH 25.8 pg (25.7-33.7); MCHC 33.7 g/dl (32.0-35.9); MEAN CELL VOLUME 76.6 fl (80-96); MEAN PLT VOLUME 8.2 fl (7.5-11.1); PLATELET COUNT 292 K/MM3 (134-434); RDW 14.6 % (11.9-15.9); WHITE BLOOD COUNT 11.7 K/mm3 (4.0-10.0)
[2017-01-24 08:34] LABS: ALBUMIN 3.3 g/dl (3.4-5.0); ALK PHOS 346 U/L (45-117); ANION GAP 12 (8-16); BILIRUBIN,TOTAL 0.8 mg/dL (0.2-1.0); CALCIUM 8.8 mg/dL (8.5-10.1); CO2 25 mmol/L (21-32); COCKROFT - GAULT 115.38; CREATININE 0.8 mg/dL (0.7-1.3); GLUCOSE,RANDOM 216 mg/dL (74-106); SGOT/AST 31 U/L (15-37); SGPT/ALT 80 U/L (12-78); TOT PROT 6.9 g/dl (6.4-8.2)
[2017-01-24] MEDS ORDERED: PT OWN MED DRAWER 7, Y5N ONE (09:41)
[2017-01-24] MEDS: amLODIPine BESYLATE 10 MG TABLET (FP) PO SCH (09:46)
[2017-01-24] MEDS: TAMSULOSIN HCL 0.4 MG CAP.ER.24H (FP) PO SCH (09:46)
[2017-01-24] MEDS: LACTOBACILLUS ACIDOPHILUS 1 EACH TAB (FP) PO SCH (09:46)
[2017-01-24] MEDS: CASPOFUNGIN ACETATE 50 MG in SODIUM CHLORIDE 250 ML IVPB SCH (10:40)
[2017-01-24] MEDS ORDERED: INSULIN (NOVOLOG) ASPART 100 UNITS/ML 10ML VIAL ONE ×2 (11:24→21:42)
--- NOTE | 2017-01-24 11:47 | PN ---
Physical Exam: SUBJECTIVE: Patient seen and examined NO fever or chills No n/v, no abdominal pain or tenderness no more diarrhea no urinary incontinence OBJECTIVE: Vital Signs Period Temp Pulse Resp BP Sys/Wilson Pulse Ox Last 24 Hr 97.2 F-98.7 F 62-90 18-20 148-160/77-86 97-97 GENERAL: The patient is awake, alert, and fully oriented, in no acute distress. HEAD: Normal with no signs of trauma. LUNGS: Breath sounds equal, clear to auscultation bilaterally, no wheezes, no crackles, no accessory muscle use. HEART: Regular rate and rhythm, S1, S2 with murmur, rub or gallop. ABDOMEN: Soft, nontender, obese , normoactive bowel sounds, no guarding, no rebound, no hepatosplenomegaly, no masses. negative aguirre sign. EXTREMITIES: 2+ pulses, warm, well-perfused, no edema. NEUROLOGICAL: Normal speech, gait not observed. PSYCH: Normal mood, normal affect. SKIN: Warm, dry, normal turgor, no rashes or lesions noted Laboratory Results - last 24 hr 01/23/17 01/23/17 01/23/17 11:24 16:39 21:47 WBC RBC Hgb Hct MCV MCHC RDW Plt Count MPV Sodium Potassium Chloride Carbon Dioxide Anion Gap BUN Creatinine Creat Clearance w eGFR POC Glucometer 308 187 248 Random Glucose Calcium Total Bilirubin AST ALT Alkaline Phosphatase Total Protein Albumin 01/24/17 01/24/17 01/24/17 05:26 06:15 06:15 WBC 11.7 H D RBC 4.28 Hgb 11.0 L Hct 32.8 L MCV 76.6 L MCHC 33.7 RDW 14.6 Plt Count 292 D MPV 8.2 Sodium 137 Potassium 4.1 Chloride 100 Carbon Dioxide 25 Anion Gap 12 BUN 16 Creatinine 0.8 Creat Clearance w eGFR > 60 POC Glucometer 228 Random Glucose 216 H Calcium 8.8 Total Bilirubin 0.8 AST 31 D ALT 80 H D Alkaline Phosphatase 346 H D Total Protein 6.9 Albumin 3.3 L Active Medications Generic Name Dose Route Start Last Admin Trade Name Freq PRN Reason Stop Dose Admin Acetaminophen 650 mg 01/17/17 22:04 01/21/17 19:37 Tylenol - PO 650 mg Q4H PRN Administration FEVER Acetaminophen 650 mg 01/18/17 04:50 01/18/17 04:30 Tylenol Suppository - NE 650 mg Q4H PRN Administration FEVER OR PAIN Amlodipine Besylate 10 mg 01/24/17 10:00 01/24/17 09:46 Norvasc - PO 10 mg DAILY EUGENE Administration Atorvastatin Calcium 80 mg 01/18/17 22:00 01/23/17 21:57 Lipitor - PO 80 mg HS EUGENE Administration Diphenhydramine HCl 25 mg 01/22/17 22:00 01/23/17 21:57 Benadryl - PO 25 mg HS EUGENE Administration Fluconazole 200 mls @ 200 mls/hr 01/25/17 10:00 Diflucan 400 Mg/Ns Premixed Ivpb - IVPB DAILY EUGENE Insulin Aspart 1 vial 01/18/17 11:00 01/24/17 06:28 Novolog Vial Sliding Scale - SQ 2 units ACHS EUGENE Administration Protocol Lactobacillus Acidophilus 1 tab 01/23/17 10:00 01/24/17 09:46 Bacid - PO 1 tab DAILY EUGENE Administration Simethicone 80 mg 01/18/17 08:21 Mylicon - PO Q4H PRN bloating Tamsulosin HCl 0.4 mg 01/18/17 10:00 01/24/17 09:46 Flomax - PO 0.4 mg DAILY EUGENE Administration Vancomycin HCl 125 mg 01/17/17 18:00 01/24/17 05:27 Vancomycin Oral Solution PO 125 mg Q6HPO EUGENE Administration CBC, BMP 01/24/17 06:15 01/24/17 06:15 Microbiology 01/18/17 04:30 Stool Clostridium difficile Antigen (LAURA) - Final 01/18/17 04:30 Stool Clostridium difficile Toxin Assay - Final 01/18/17 00:12 Urine - Urine García Urine Culture - Final NO GROWTH OBTAINED 01/17/17 19:09 Blood - Peripheral Venous Yeast/Fungus Identification - Final Maryan Albicans 01/17/17 19:09 Blood - Peripheral Venous Blood Culture - Final Yeast Like Organism 01/17/17 19:09 Blood - Peripheral Venous Blood Culture - Final Yeast Like Organism 01/21/17 18:25 Blood - Peripheral Venous Blood Culture - Preliminary NO GROWTH OBTAINED AFTER 48 HOURS, INCUBATION TO CONTINUE FOR 3 DAYS. 01/21/17 18:25 Blood - Peripheral Venous Blood Culture - Preliminary NO GROWTH OBTAINED AFTER 48 HOURS, INCUBATION TO CONTINUE FOR 3 DAYS. 01/20/17 06:15 Blood - Peripheral Venous Blood Culture - Preliminary NO GROWTH OBTAINED AFTER 96 HOURS, INCUBATION TO CONTINUE FOR 1 DAYS. 01/20/17 06:15 Blood - Peripheral Venous Blood Culture - Preliminary NO GROWTH OBTAINED AFTER 96 HOURS, INCUBATION TO CONTINUE FOR 1 DAYS. Laboratory Tests 01/24/17 06:15 Calcium 8.8 Total Bilirubin 0.8 AST 31 D ALT 80 H D Alkaline Phosphatase 346 H D Total Protein 6.9 Albumin 3.3 L ASSESSMENT/PLAN: 66 year old male with pmh of DM, HTN, nephrolithiasis, Cdiff present with fever and chills s/p Cystoscopy with stent removal Sepsis with Fungemia, unknown source NO fever overnight CT abdomen and pelvis showed no abscess, no pyelonephritis and s/s of infections. Blood culture 01/17/17 positive for yeast like organism blood culture on 01/20/17, so far negative for 72 hours Blood culture on 01/21/17, so far negative for 24 hours urine culture negative Caspofungin day 6 ID on case Pt will need a course of 7 days of IV antifungal (caspofungin) after which pt will need to complete 14 days of PO diflucan 400mg daily Will need to follow LFTs Ophthalmology consulted Urinary Incontinence (resolved) Bladder scan showed no urinary retention Dr Pineda, no further intervention Abdominal Distension (resolved) No free air seen on CT abdomen/pelvis No n/v, no abdominal tenderness, tolerating diet well on simethicone C-diff H/o of C-diff No more diarrhea Cdiff antigen and toxin negative continue Po vancomycin, currently on day 8, will complete course HTN BP controlled on amlodipine 10mg PO daily DM hgA1c 7.9 Blood glucose controlled Novolog sliding scale Portable hypertension with hepatomegaly and possible liver cirrhosis hepatitis panel negative Pt denies any h/o liver disease denies h/o liver disease US liver ordered Outpatient GI follow Up FEN Fluid: none Electrolytes: no abnormalities Nutrition: diabetic diet DVT prophylaxis: SCD Disposition: Dc planning for tomorrow morning after am dose of caspofungin. Visit type - Emergency Visit Emergency Visit: Yes ED Registration Date: 01/17/17 Care time: The patient presented to the Emergency Department on the above date and was hospitalized for further evaluation of their emergent condition. - New Patient This patient is new to me today: Yes - Critical Care Critical Care patient: No - Discharge Referral Referred to [facility] Med P.C.: No
--- NOTE | 2017-01-24 13:14 | PN ---
Progress Note (short form) - Note Progress Note: feels well wants to go home brother present at bedside- asked by patient to stay for exam/discussion no diarrhea Vital Signs Period Temp Pulse Resp BP Sys/Wilson Pulse Ox Last 24 Hr 97.2 F-98.7 F 62-90 18-20 148-160/77-86 97-97 cor-rrr lungs clear abd soft,nt ext no edema CBC, BMP 01/24/17 06:15 01/24/17 06:15 Laboratory Tests 01/24/17 06:15 AST 31 D ALT 80 H D Alkaline Phosphatase 346 H D Microbiology 01/20/17 06:15 Blood - Peripheral Venous Blood Culture - Preliminary NO GROWTH OBTAINED AFTER 96 HOURS, INCUBATION TO CONTINUE FOR 1 DAYS. 01/20/17 06:15 Blood - Peripheral Venous Blood Culture - Preliminary NO GROWTH OBTAINED AFTER 96 HOURS, INCUBATION TO CONTINUE FOR 1 DAYS. 01/21/17 18:25 Blood - Peripheral Venous Blood Culture - Preliminary NO GROWTH OBTAINED AFTER 48 HOURS, INCUBATION TO CONTINUE FOR 3 DAYS. 01/21/17 18:25 Blood - Peripheral Venous Blood Culture - Preliminary NO GROWTH OBTAINED AFTER 48 HOURS, INCUBATION TO CONTINUE FOR 3 DAYS. 01/17/17 19:09 Blood - Peripheral Venous Yeast/Fungus Identification - Final Maryan Albicans 01/17/17 19:09 Blood - Peripheral Venous Blood Culture - Final Yeast Like Organism 01/17/17 19:09 Blood - Peripheral Venous Blood Culture - Final Yeast Like Organism 01/18/17 00:12 Urine - Urine García Urine Culture - Final NO GROWTH OBTAINED 01/18/17 04:30 Stool Clostridium difficile Antigen (LAURA) - Final 01/18/17 04:30 Stool Clostridium difficile Toxin Assay - Final echo negative a/p sepsis - s/p cysto and stent temmoval 01/17 fungemia- cancidas rising alk phos- ?secondary to candidemia, ?secondary to meds d/c cancidas- can cause elevated alk phos, switch to diflucan sonogram of liver/gallbladder today,may need repeat ct scan abd/pelvis with iv contrast to r/o hepatosplenic candidiasis GI consult today- d/w Dr Haji repeat lfts in am esr/crp would not discharge in am- will need optho exam- d/w patient - he will do as outpt in either case will need LFTS monitored at outpt Dr Melendez will see in am please do not discharge patient without talking to ID first I explained at length that this is all in the best interest of his health- he understands and will comply with our reccd will review ct scan abd/pelvis done 01/17 Problem List - Problems (1) Sepsis Code(s): A41.9 - SEPSIS, UNSPECIFIED ORGANISM (2) Fungemia Code(s): B49 - UNSPECIFIED MYCOSIS (3) C. difficile colitis Code(s): A04.7 - ENTEROCOLITIS DUE TO CLOSTRIDIUM DIFFICILE
--- NOTE | 2017-01-24 16:09 | PN ---
Teaching Attending Note Name of Resident: Chalino Zavala ATTENDING PHYSICIAN STATEMENT I saw and evaluated the patient. I reviewed the resident's note and discussed the case with the resident. I agree with the resident's findings and plan as documented. SUBJECTIVE: No complaints. OBJECTIVE: Vital Signs Period Temp Pulse Resp BP Sys/Wilson Pulse Ox Last 24 Hr 97.2 F-98.4 F 62-97 16-20 148-163/77-86 97-97 HEART: S1S2, RRR, (+) 2/6 systolic murmur LUNGS: Clear ABDOMEN: Soft, non-tender, non-distended, normal BS EXTREMITIES: No edema ASSESSMENT AND PLAN: This is a 66-year-old man with a history of type 2 DM, NPH, HTN, kidney stones, C. diff colitis who was admitted for fever and chills after cystoscopy, left ureteral stent removal and and stone manipulation. 1. Sepsis secondary to fungemia with Maryan albicans - Possible urinary source - Cancidas changed to Diflucan - Repeat blood cultures negative 2. Hepatic transaminitis with elevated alk phos - Possibly secondary to sepsis, Cancidas - Cancidas discontinued - RUQ US shows hepatomegaly and fatty liver 2. Nephrolithiasis, s/p stent placement and removal, stone manipulation - Continue Flomax 3. Hypokalemia - Resolved 4. Portal HTN - Hepatitis panel negative 5. History of C. difficile colitis - Continue PO Vancomycin 6. HTN - Continue Norvasc 7. Type 2 DM - Continue Novolog sliding scale 8. Hyperlipidemia - Continue Lipitor
--- NOTE | 2017-01-24 16:32 | CON.GI ---
Consult Consult Specialty:: Gastroenterology Referred by:: Dr. Zavala Reason for Consultation:: abnormal LFTs - History of Present Illness Chief Complaint: Renal colic resolved with interventions History of Present Illness: 66M diabetic has fungemia and a rising alkaline phosphatase in the setting of a fatty liver with CT findings suggestive of portal hypertension. CT and sonogram fail to reveal gallstones or ductal dilation. Eric was admitted with renal colic and required two cystoscopic procedure to remove left ureteral stones above a stricture. He denies any h/o live disease and quit drinking alcohol several months ago. He never drank alcohol heavily. He denies IVDA, tattoos and tranfusions or FH of liver disease. Never told of any liver problems. Has no abdominal pain. Had colonoscopy with Dr Fritz in 1999 which was normal. - History Source History Provided By: Patient Limitations to Obtaining History: No Limitations - Past Medical History Cardio/Vascular: Yes: Other (Postop flash pulmonary edema following kidney surgery) Pulmonary: Yes: Sleep Apnea (has CPAP) Hepatobiliary: Yes: Other (fatty liver with likely advancing fibrosis) Renal/: Yes: BPH, Renal Calculi (multiple lithotripsies and now cystoscopic interventions for stricture and stones, laparosocpic right kidney surgery for angiomyolipoma) Endocrine: Yes: Diabetes Mellitus - Past Surgical History Past Surgical History: Yes: Colonoscopy, TURP Additional Surgical History: hemorrhoidectomy and anal fistulectomy. 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 Place of : [facility] History of Recent Travel: No Home Medications - Allergies Allergies/Adverse Reactions: Allergies Allergy/AdvReac Type Severity Reaction Status Date / Time No Known Allergies Allergy Verified 01/17/17 10:43 - Home Medications Home Medications: Ambulatory Orders Amlodipine Bes/Olmesartan Med [Amlodipine-Olmesartan 10-20 mg] 1 each PO DAILY 01/01/17 Atorvastatin Ca [Lipitor] 80 mg PO HS 01/01/17 Metformin HCl [Metformin HCl ER] 1,000 mg PO BID 01/01/17 Tamsulosin HCl 0.4 mg PO DAILY 01/01/17 Vancomycin HCl 125 mg PO QID 01/01/17 Family Disease History - Family Disease History Family Disease History: Heart Disease: Father ( 66 congestive heart failure) , Other: Mother ( Guillantelma [place] ) Review of Systems - Review of Systems Constitutional: reports: Chills, Fever Eyes: reports: No Symptoms HENT: reports: No Symptoms Neck: reports: No Symptoms Cardiovascular: reports: No Symptoms Respiratory: reports: Snoring Gastrointestinal: reports: No Symptoms Genitourinary: reports: Flank Pain Musculoskeletal: reports: No Symptoms Physical Exam-GI Vital Signs: Vital Signs Temperature 98.2 F 01/24/17 14:39 Pulse Rate 97 H 01/24/17 14:39 Respiratory Rate 16 01/24/17 14:39 Blood Pressure 163/78 01/24/17 14:39 O2 Sat by Pulse Oximetry (%) 97 01/24/17 10:03 Current Medications Generic Name Dose Route Start Last Admin Trade Name Freq PRN Reason Stop Dose Admin Acetaminophen 650 mg 01/17/17 22:04 01/21/17 19:37 Tylenol - PO 650 mg Q4H PRN Administration FEVER Acetaminophen 650 mg 01/18/17 04:50 01/18/17 04:30 Tylenol Suppository - [place] 650 mg Q4H PRN Administration FEVER OR PAIN Amlodipine Besylate 10 mg 01/24/17 10:00 01/24/17 09:46 Norvasc - PO 10 mg DAILY EUGENE Administration Atorvastatin Calcium 80 mg 01/18/17 22:00 01/23/17 21:57 Lipitor - PO 80 mg HS EUGENE Administration Diphenhydramine HCl 25 mg 01/22/17 22:00 01/23/17 21:57 Benadryl - PO 25 mg HS EUGENE Administration Fluconazole 200 mls @ 100 mls/hr 01/25/17 10:00 Diflucan 400 Mg/Ns Premixed Ivpb - IVPB DAILY EUGENE Insulin Aspart 1 vial 01/18/17 11:00 01/24/17 16:27 Novolog Vial Sliding Scale - SQ 2 units ACHS EUGENE Administration Protocol Lactobacillus Acidophilus 1 tab 01/23/17 10:00 01/24/17 09:46 Bacid - PO 1 tab DAILY EUGENE Administration Simethicone 80 mg 01/18/17 08:21 Mylicon - PO Q4H PRN bloating Tamsulosin HCl 0.4 mg 01/18/17 10:00 01/24/17 09:46 Flomax - PO 0.4 mg DAILY EUGENE Administration CBC,CMP WBC 11.7 K/mm3 (4.0-10.0) H D 01/24/17 06:15 RBC 4.28 M/mm3 (4.00-5.60) 01/24/17 06:15 Hgb 11.0 GM/dL (11.7-16.9) L 01/24/17 06:15 Hct 32.8 % (35.4-49) L 01/24/17 06:15 MCV 76.6 fl (80-96) L 01/24/17 06:15 MCHC 33.7 g/dl (32.0-35.9) 01/24/17 06:15 RDW 14.6 % (11.9-15.9) 01/24/17 06:15 Plt Count 292 K/MM3 (134-434) D 01/24/17 06:15 MPV 8.2 fl (7.5-11.1) 01/24/17 06:15 Neutrophils % 89.6 % (42.8-82.8) H 01/19/17 06:30 Lymphocytes % 4.8 % (8-40) L D 01/19/17 06:30 Monocytes % 5.1 % (3.8-10.2) 01/19/17 06:30 Eosinophils % 0.3 % (0-4.5) D 01/19/17 06:30 Basophils % 0.2 % (0-2.0) 01/19/17 06:30 Sodium 137 mmol/L (136-145) 01/24/17 06:15 Potassium 4.1 mmol/L (3.5-5.1) 01/24/17 06:15 Chloride 100 mmol/L (98-107) 01/24/17 06:15 Carbon Dioxide 25 mmol/L (21-32) 01/24/17 06:15 Anion Gap 12 (8-16) 01/24/17 06:15 BUN 16 mg/dL (7-18) 01/24/17 06:15 Creatinine 0.8 mg/dL (0.7-1.3) 01/24/17 06:15 Creat Clearance w eGFR > 60 (>60) 01/24/17 06:15 POC Glucometer 223 UNITS (()) 01/24/17 11:36 Random Glucose 216 mg/dL (74-106) H 01/24/17 06:15 Hemoglobin A1c % 7.9 % (4.8-6.0) H 01/19/17 06:30 Lactic Acid 0.942 mmol/L (0.4-2.0) 01/17/17 18:58 Calcium 8.8 mg/dL (8.5-10.1) 01/24/17 06:15 Magnesium 2.2 mg/dL (1.8-2.4) 01/20/17 06:15 Total Bilirubin 0.8 mg/dL (0.2-1.0) 01/24/17 06:15 AST 31 U/L (15-37) D 01/24/17 06:15 ALT 80 U/L (12-78) H D 01/24/17 06:15 Alkaline Phosphatase 346 U/L (45-117) H D 01/24/17 06:15 Total Protein 6.9 g/dl (6.4-8.2) 01/24/17 06:15 Albumin 3.3 g/dl (3.4-5.0) L 01/24/17 06:15 Labs: CBC, BMP 01/24/17 06:15 01/24/17 06:15 INR, PTT INR 1.43 (0.82-1.09) H 01/18/17 06:00 Imaging - Results Cat Scan: Image Reviewed (fatty liver with portal hypertensive changes) Ultrasound: Image Reviewed (fatty liver, no stones) Problem List - Problems (1) Fatty liver Code(s): K76.0 - FATTY (CHANGE OF) LIVER, NOT ELSEWHERE CLASSIFIED (2) Cholestatic hepatitis Code(s): K75.89 - OTHER SPECIFIED INFLAMMATORY LIVER DISEASES (3) Nephrolithiasis Code(s): N20.0 - CALCULUS OF KIDNEY (4) BPH (benign prostatic hypertrophy) Code(s): N40.0 - BENIGN PROSTATIC HYPERPLASIA WITHOUT LOWER URINRY TRACT SYMP (5) Lpg-bwzczkn-ffkcinjax diabetes mellitus without complications Code(s): E11.9 - TYPE 2 DIABETES MELLITUS WITHOUT COMPLICATIONS (6) Hypertension Code(s): I10 - ESSENTIAL (PRIMARY) HYPERTENSION Assessment/Plan I suspect that Eric has 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 He will need an MRI to exclude fungal abscesses however. I have discussed HIDALGO with fibrois and the need to lose weight with diet and exercise and to followup in our office after discharge. I will order a Fibrosure and AFP. I discussed the case with Dr Baires and Dr Zavala.
[2017-01-24] MEDS: diphenhydrAMINE HCL 25 MG CAPSULE (FP) PO SCH (22:30)
[2017-01-24] MEDS: ATORVASTATIN CA 80 MG TABLET (FP) PO SCH (22:30)
[2017-01-25] MEDS: INSULIN SLIDING SCALE (NOVOLOG) 1 VIAL SQ SCH ×4 (06:02→22:12)
[2017-01-25 08:04] LABS: ALBUMIN 3.4 g/dl (3.4-5.0)
--- NOTE | 2017-01-25 08:04 | PN ---
Physical Exam: SUBJECTIVE: Patient seen and examined. He complains of LLQ abdominal pain. He was incontinent of urine overnight. OBJECTIVE: Vital Signs Period Temp Pulse Resp BP Sys/Wilson Pulse Ox Last 24 Hr 97.9 F-98.3 F 66-98 16-20 147-163/78-82 97-97 GENERAL: The patient is awake, alert, and fully oriented, in no acute distress. LUNGS: Breath sounds equal, clear to auscultation bilaterally, no wheezes, no crackles, no accessory muscle use. HEART: Regular rate and rhythm, S1, S2, (+) 2/6 systolic murmur ABDOMEN: Obese, soft, nontender, nondistended, normoactive bowel sounds, no guarding, no rebound, no hepatosplenomegaly, no masses. EXTREMITIES: 2+ pulses, warm, well-perfused, no edema. Laboratory Results - last 24 hr 01/24/17 01/24/17 01/24/17 06:15 06:15 11:36 WBC 11.7 H D RBC 4.28 Hgb 11.0 L Hct 32.8 L MCV 76.6 L MCHC 33.7 RDW 14.6 Plt Count 292 D MPV 8.2 Sodium 137 Potassium 4.1 Chloride 100 Carbon Dioxide 25 Anion Gap 12 BUN 16 Creatinine 0.8 Creat Clearance w eGFR > 60 POC Glucometer 223 Random Glucose 216 H Calcium 8.8 Total Bilirubin 0.8 AST 31 D ALT 80 H D Alkaline Phosphatase 346 H D Total Protein 6.9 Albumin 3.3 L 01/24/17 01/24/17 16:23 22:28 WBC RBC Hgb Hct MCV MCHC RDW Plt Count MPV Sodium Potassium Chloride Carbon Dioxide Anion Gap BUN Creatinine Creat Clearance w eGFR POC Glucometer 226 282 Random Glucose Calcium Total Bilirubin AST ALT Alkaline Phosphatase Total Protein Albumin Active Medications Generic Name Dose Route Start Last Admin Trade Name Freq PRN Reason Stop Dose Admin Acetaminophen 650 mg 01/17/17 22:04 01/21/17 19:37 Tylenol - PO 650 mg Q4H PRN Administration FEVER Acetaminophen 650 mg 01/18/17 04:50 01/18/17 04:30 Tylenol Suppository - [place] 650 mg Q4H PRN Administration FEVER OR PAIN Amlodipine Besylate 10 mg 01/24/17 10:00 01/24/17 09:46 Norvasc - PO 10 mg DAILY EUGENE Administration Atorvastatin Calcium 80 mg 01/18/17 22:00 01/24/17 22:30 Lipitor - PO 80 mg HS EUGENE Administration Diphenhydramine HCl 25 mg 01/22/17 22:00 01/24/17 22:30 Benadryl - PO 25 mg HS EUGENE Administration Fluconazole 200 mls @ 100 mls/hr 01/25/17 10:00 Diflucan 400 Mg/Ns Premixed Ivpb - IVPB DAILY EUGENE Insulin Aspart 1 vial 01/18/17 11:00 01/25/17 06:02 Novolog Vial Sliding Scale - SQ 2 units ACHS EUGENE Administration Protocol Lactobacillus Acidophilus 1 tab 01/23/17 10:00 01/24/17 09:46 Bacid - PO 1 tab DAILY EUGENE Administration Simethicone 80 mg 01/18/17 08:21 Mylicon - PO Q4H PRN bloating Tamsulosin HCl 0.4 mg 01/18/17 10:00 01/24/17 09:46 Flomax - PO 0.4 mg DAILY EUGENE Administration ASSESSMENT/PLAN: This is a 66-year-old man with a history of type 2 DM, NPH, HTN, kidney stones, C. diff colitis who was admitted for fever and chills after cystoscopy, left ureteral stent removal and and stone manipulation. 1. Sepsis secondary to fungemia with Maryan albicans - Possible urinary source - Cancidas changed to Diflucan secondary to increasing AST and alk phos - Repeat blood cultures negative 2. Hepatic transaminitis with elevated alk phos - Possibly secondary to sepsis, Cancidas - Cancidas discontinued - RUQ US shows hepatomegaly and fatty liver - MRI of abdomen ordered to evaluate for abscesses 3. Nephrolithiasis, s/p stent placement and removal, stone manipulation - Continue Flomax 4. Hypokalemia - Resolved 5. Portal HTN - Hepatitis panel negative 6. History of C. difficile colitis - PO Vancomycin discontinued 7. HTN - Continue Norvasc 8. Type 2 DM - Continue Novolog sliding scale 9. Hyperlipidemia - Continue Lipitor Visit type - Emergency Visit Emergency Visit: Yes ED Registration Date: 01/17/17 Care time: The patient presented to the Emergency Department on the above date and was hospitalized for further evaluation of their emergent condition. - New Patient This patient is new to me today: No - Critical Care Critical Care patient: No - Discharge Referral Referred to [facility] No
[2017-01-25 08:09] LABS: BILIRUBIN,DIRECT 0.2 mg/dL (0.0-0.2); BILIRUBIN,TOTAL 0.9 mg/dL (0.2-1.0); TOT PROT 7.2 g/dl (6.4-8.2)
[2017-01-25 08:13] LABS: FERRITIN 626.479 ng/ml (16.4-293.9)
[2017-01-25] MEDS ORDERED: FLUCONAZOLE 400 MG/NS 200 ML IVPB SCH (10:00)
[2017-01-25] MEDS: amLODIPine BESYLATE 10 MG TABLET (FP) PO SCH (10:26)
[2017-01-25] MEDS: TAMSULOSIN HCL 0.4 MG CAP.ER.24H (FP) PO SCH (10:26)
[2017-01-25] MEDS: LACTOBACILLUS ACIDOPHILUS 1 EACH TAB (FP) PO SCH (10:26)
[2017-01-25] MEDS: FLUCONAZOLE 400 MG/NS 200 ML IVPB SCH (10:26)
[2017-01-25] MEDS ORDERED: INSULIN (NOVOLOG) ASPART 100 UNITS/ML 10ML VIAL ONE (12:05)
--- NOTE | 2017-01-25 12:43 | PN ---
Progress Note, Physician History of Present Illness: C/O fungal rash, groin No c/o abdominal pain No F/C Awaiting MRI, repeat Alk phos - Current Medication List Current Medications: Active Medications Acetaminophen (Tylenol -) 650 mg PO Q4H PRN PRN Reason: FEVER Last Admin: 01/21/17 19:37 Dose: 650 mg Acetaminophen (Tylenol Suppository -) 650 mg DC Q4H PRN PRN Reason: FEVER OR PAIN Last Admin: 01/18/17 04:30 Dose: 650 mg Amlodipine Besylate (Norvasc -) 10 mg PO DAILY [facility] Last Admin: 01/25/17 10:26 Dose: 10 mg Atorvastatin Calcium (Lipitor -) 80 mg PO HS [facility] Last Admin: 01/24/17 22:30 Dose: 80 mg Diphenhydramine HCl (Benadryl -) 25 mg PO HS [facility] Last Admin: 01/24/17 22:30 Dose: 25 mg Fluconazole (Diflucan 400 Mg/Ns Premixed Ivpb -) 200 mls @ 100 mls/hr IVPB DAILY [facility] Last Admin: 01/25/17 10:26 Dose: 100 mls/hr Insulin Aspart (Novolog Vial Sliding Scale -) 1 vial SQ ACHS EUGENE PRN Reason: Protocol Last Admin: 01/25/17 12:17 Dose: 6 units Lactobacillus Acidophilus (Bacid -) 1 tab PO DAILY [facility] Last Admin: 01/25/17 10:26 Dose: 1 tab Simethicone (Mylicon -) 80 mg PO Q4H PRN PRN Reason: bloating Tamsulosin HCl (Flomax -) 0.4 mg PO DAILY [facility] Last Admin: 01/25/17 10:26 Dose: 0.4 mg - Objective Vital Signs: Vital Signs Temperature 97.6 F 01/25/17 09:56 Pulse Rate 86 01/25/17 09:56 Respiratory Rate 20 01/25/17 09:56 Blood Pressure 136/68 01/25/17 09:56 O2 Sat by Pulse Oximetry (%) 98 01/25/17 11:52 Constitutional: Yes: No Distress Eyes: Yes: Conjunctiva Clear Cardiovascular: Yes: Regular Rate and Rhythm, S1, S2 Respiratory: Yes: CTA Bilaterally Gastrointestinal: Yes: Normal Bowel Sounds, Soft. No: Tenderness Labs: CBC, BMP 01/24/17 06:15 01/24/17 06:15 INR, PTT INR 1.43 (0.82-1.09) H 01/18/17 06:00 Assessment/Plan Fungemia Elevated ALK PHOS- drug-induced v. hepatic abscess Await MRI, repeat LFTs Continue fluconazole Discussed with at bedside
--- NOTE | 2017-01-25 13:30 | PN ---
GI Progress Note Subjective: GI NOte: Has not yet had MRI bit LFTs have leveled off. 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 I explained that this will need to be discussed with ID before being undertaken. She also informs me that Eric has had fecal incontinence since having a fistulectomy/hemorrhoidectomy and that he had a recent bout with C diff colitis. The tells me that Eric has had a failing memory related to the NPH. - Objective Vital Signs: Vital Signs Temperature 97.6 F 01/25/17 09:56 Pulse Rate 86 01/25/17 09:56 Respiratory Rate 20 01/25/17 09:56 Blood Pressure 136/68 01/25/17 09:56 O2 Sat by Pulse Oximetry (%) 98 01/25/17 11:52 Constitutional: Calm ...Auscultate: Yes: Normoactive Bowel Sounds ...Palpate: Yes: Soft, Other (nontender) Labs: CBC, BMP 01/24/17 06:15 01/24/17 06:15 INR, PTT INR 1.43 (0.82-1.09) H 01/18/17 06:00 Assessment/Plan Continue to suspect 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 Await MRI to exclude fungal abscesses. I have discussed the need to increase fiber in the diet and to add metamucil to hopefully allow for better control of his bowel movements. Problem List - Problems (1) Fatty liver Code(s): K76.0 - FATTY (CHANGE OF) LIVER, NOT ELSEWHERE CLASSIFIED (2) Cholestatic hepatitis Code(s): K75.89 - OTHER SPECIFIED INFLAMMATORY LIVER DISEASES (3) Nephrolithiasis Code(s): N20.0 - CALCULUS OF KIDNEY (4) BPH (benign prostatic hypertrophy) Code(s): N40.0 - BENIGN PROSTATIC HYPERPLASIA WITHOUT LOWER URINRY TRACT SYMP (5) Opb-nxizuco-vgkjascet diabetes mellitus without complications Code(s): E11.9 - TYPE 2 DIABETES MELLITUS WITHOUT COMPLICATIONS (6) Hypertension Code(s): I10 - ESSENTIAL (PRIMARY) HYPERTENSION
[2017-01-25] MEDS: PSYLLIUM 5.85 GM PACKET PO SCH (14:48)
[2017-01-25] MEDS: NYSTATIN 100000 UNIT/GM TOPICAL OINTMENT 15 GM TUBE TP SCH ×2 (14:49→22:15)
[2017-01-25] MEDS: ATORVASTATIN CA 80 MG TABLET (FP) PO SCH (22:11)
[2017-01-25] MEDS: diphenhydrAMINE HCL 25 MG CAPSULE (FP) PO SCH (22:11)
[2017-01-26] MEDS: INSULIN SLIDING SCALE (NOVOLOG) 1 VIAL SQ SCH ×2 (06:26→13:22)
[2017-01-26 06:39] LABS: SERUM IRON 38 ug/dL (38-169); TOTAL IRON BINDING CAPACITY 314 ug/dL (250-450); UIBC 276 ug/dL (111-343)
[2017-01-26 08:04] LABS: MCH 26.1 pg (25.7-33.7); MEAN CELL VOLUME 76.6 fl (80-96); MEAN PLT VOLUME 7.9 fl (7.5-11.1); PLATELET COUNT 334 K/MM3 (134-434); RDW 14.9 % (11.9-15.9); WHITE BLOOD COUNT 8.7 K/mm3 (4.0-10.0)
[2017-01-26 08:23] LABS: ALBUMIN 3.6 g/dl (3.4-5.0); BILIRUBIN,DIRECT 0.2 mg/dL (0.0-0.2); C-REACTIVE PROTEIN 0.7 MG/DL (0.00-0.3); CALCIUM 9.4 mg/dL (8.5-10.1); COCKROFT - GAULT 115.38; CREATININE 0.8 mg/dL (0.7-1.3); TOT PROT 7.4 g/dl (6.4-8.2)
[2017-01-26 08:40] LABS: ANISOCYTOSIS 1+; METAMYELOCYTE 2 % (0-2); PLATELET COMMENT2 NO CLOTTING DETECTED; PLATELET ESTIMATE ADEQUATE (NORMAL); POIKILOCYTOSIS 1+
[2017-01-26] MEDS ORDERED: PT OWN MED DRAWER 7, Y5N ONE (09:21)
--- NOTE | 2017-01-26 10:10 | PN ---
GI Progress Note Subjective: GI NOte: Has no abdominal pain. Anxious to go home. Reviewed MRI with Dr Anaya. No liver abscesses. LFTs are slowly improving. 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 MRI excludes fungal abscesses. No GI objections to discharge. Instructed Eric to get followup LFTs with his PMD within a week to to followup in our office. Problem List - Problems (1) Fatty liver Code(s): K76.0 - FATTY (CHANGE OF) LIVER, NOT ELSEWHERE CLASSIFIED (2) Cholestatic hepatitis Code(s): K75.89 - OTHER SPECIFIED INFLAMMATORY LIVER DISEASES (3) Nephrolithiasis Code(s): N20.0 - CALCULUS OF KIDNEY (4) BPH (benign prostatic hypertrophy) Code(s): N40.0 - BENIGN PROSTATIC HYPERPLASIA WITHOUT LOWER URINRY TRACT SYMP (5) Ucd-kwjixoh-refdzoenb diabetes mellitus without complications Code(s): E11.9 - TYPE 2 DIABETES MELLITUS WITHOUT COMPLICATIONS (6) Hypertension Code(s): I10 - ESSENTIAL (PRIMARY) HYPERTENSION
[2017-01-26] MEDS: TAMSULOSIN HCL 0.4 MG CAP.ER.24H (FP) PO SCH (10:14)
[2017-01-26] MEDS: LACTOBACILLUS ACIDOPHILUS 1 EACH TAB (FP) PO SCH (10:14)
[2017-01-26] MEDS: amLODIPine BESYLATE 10 MG TABLET (FP) PO SCH (10:14)
[2017-01-26] MEDS: PSYLLIUM 5.85 GM PACKET PO SCH (10:17)
[2017-01-26] MEDS: FLUCONAZOLE 400 MG/NS 200 ML IVPB SCH (10:17)
[2017-01-26] MEDS: NYSTATIN 100000 UNIT/GM TOPICAL OINTMENT 15 GM TUBE TP SCH (10:17)
--- NOTE | 2017-01-26 10:17 | PN ---
Physical Exam: SUBJECTIVE: Patient seen and examined. He has no complaints. He reports no diarrhea, incontinence of stool or urine. OBJECTIVE: Vital Signs Period Temp Pulse Resp BP Sys/Wilson Pulse Ox Last 24 Hr 98.0 F-98.7 F 67-77 16-20 126-148/70-93 98 GENERAL: The patient is awake, alert, and fully oriented, in no acute distress. LUNGS: Breath sounds equal, clear to auscultation bilaterally, no wheezes, no crackles, no accessory muscle use. HEART: Regular rate and rhythm, S1, S2, (+) 2/6 systolic murmur ABDOMEN: Obese, soft, nontender, nondistended, normoactive bowel sounds, no guarding, no rebound, no hepatosplenomegaly, no masses. EXTREMITIES: 2+ pulses, warm, well-perfused, no edema. Laboratory Results - last 24 hr 01/25/17 01/25/17 01/25/17 07:20 11:48 17:48 WBC RBC Hgb Hct MCV MCHC RDW Plt Count MPV Neutrophils % Lymphocytes % Monocytes % Metamyelocytes Reactive Lymphocytes Platelet Estimate Platelet Comment Poikilocytosis Anisocytosis Sodium Potassium Chloride Carbon Dioxide Anion Gap BUN Creatinine POC Glucometer 302 132 Random Glucose Calcium Iron 38 TIBC 314 Iron Saturation 12 L Total Bilirubin Direct Bilirubin AST ALT Alkaline Phosphatase C-Reactive Protein Total Protein Albumin Lipase 01/25/17 01/26/17 01/26/17 21:22 05:43 06:00 WBC RBC Hgb Hct MCV MCHC RDW Plt Count MPV Neutrophils % Lymphocytes % Monocytes % Metamyelocytes Reactive Lymphocytes Platelet Estimate Platelet Comment Poikilocytosis Anisocytosis Sodium 136 Potassium 4.7 Chloride 100 Carbon Dioxide 23 Anion Gap 13 BUN 20 H D Creatinine 0.8 POC Glucometer 281 198 Random Glucose 210 H Calcium 9.4 Iron TIBC Iron Saturation Total Bilirubin 1.0 Direct Bilirubin 0.2 AST 12 L D ALT 55 Alkaline Phosphatase 309 H C-Reactive Protein 0.7 H D Total Protein 7.4 Albumin 3.6 Lipase 561 H 01/26/17 06:00 WBC 8.7 RBC 4.69 Hgb 12.2 D Hct 35.9 MCV 76.6 L MCHC 34.0 RDW 14.9 Plt Count 334 MPV 7.9 Neutrophils % 71.0 D Lymphocytes % 20.0 D Monocytes % 4.0 Metamyelocytes 2 Reactive Lymphocytes 3 Platelet Estimate Adequate Platelet Comment No clotting detected Poikilocytosis 1+ Anisocytosis 1+ Sodium Potassium Chloride Carbon Dioxide Anion Gap BUN Creatinine POC Glucometer Random Glucose Calcium Iron TIBC Iron Saturation Total Bilirubin Direct Bilirubin AST ALT Alkaline Phosphatase C-Reactive Protein Total Protein Albumin Lipase Active Medications Generic Name Dose Route Start Last Admin Trade Name Freq PRN Reason Stop Dose Admin Acetaminophen 650 mg 01/17/17 22:04 01/21/17 19:37 Tylenol - PO 650 mg Q4H PRN Administration FEVER Acetaminophen 650 mg 01/18/17 04:50 01/18/17 04:30 Tylenol Suppository - TN 650 mg Q4H PRN Administration FEVER OR PAIN Amlodipine Besylate 10 mg 01/24/17 10:00 01/25/17 10:26 Norvasc - PO 10 mg DAILY EUGENE Administration Atorvastatin Calcium 80 mg 01/18/17 22:00 01/25/17 22:11 Lipitor - PO 80 mg HS EUGENE Administration Diphenhydramine HCl 25 mg 01/22/17 22:00 01/25/17 22:11 Benadryl - PO 25 mg HS EUGENE Administration Fluconazole 200 mls @ 100 mls/hr 01/25/17 10:00 01/25/17 10:26 Diflucan 400 Mg/Ns Premixed Ivpb - IVPB 100 mls/hr DAILY EUGENE Administration Insulin Aspart 1 vial 01/18/17 11:00 01/26/17 06:26 Novolog Vial Sliding Scale - SQ Not Given ACHS EUGENE Protocol Lactobacillus Acidophilus 1 tab 01/23/17 10:00 01/25/17 10:26 Bacid - PO 1 tab DAILY EUGENE Administration Nystatin 1 applic 01/25/17 13:00 01/25/17 22:15 Mycostatin Ointment - TP 1 applic BID EUGENE Administration Psyllium Hydrophilic Mucilloid 5.85 gm 01/25/17 13:45 01/25/17 14:48 Metamucil (Sugar-Free) - PO 5.85 gm DAILY EUGENE Administration Simethicone 80 mg 01/18/17 08:21 Mylicon - PO Q4H PRN bloating Tamsulosin HCl 0.4 mg 01/18/17 10:00 01/25/17 10:26 Flomax - PO 0.4 mg DAILY EGUENE Administration ASSESSMENT/PLAN: This is a 66-year-old man with a history of type 2 DM, NPH, HTN, kidney stones, C. diff colitis who was admitted for fever and chills after cystoscopy, left ureteral stent removal and and stone manipulation. 1. Sepsis secondary to fungemia with Maryan albicans - Possible urinary source, skin source - Cancidas changed to Diflucan secondary to increasing AST and alk phos - Repeat blood cultures negative 2. Hepatic transaminitis with elevated alk phos - Possibly secondary to sepsis, Cancidas - Cancidas discontinued - ALT improved, alk phos improving - RUQ US shows hepatomegaly and fatty liver - MRI of abdomen to evaluate for liver abscesses pending 3. Nephrolithiasis, s/p stent placement and removal, stone manipulation - Continue Flomax 4. Hypokalemia - Resolved 5. Portal HTN - Hepatitis panel negative 6. History of C. difficile colitis - PO Vancomycin discontinued 7. HTN - Continue Norvasc 8. Type 2 DM - Continue Novolog sliding scale 9. Hyperlipidemia - Continue Lipitor 10. NPH with dementia, urinary incontinence - Shunt is planned 11. Obstructive sleep apnea - Continue BiPAP at night Visit type - Emergency Visit Emergency Visit: Yes ED Registration Date: 01/17/17 Care time: The patient presented to the Emergency Department on the above date and was hospitalized for further evaluation of their emergent condition. - New Patient This patient is new to me today: No - Critical Care Critical Care patient: No - Discharge Referral Referred to [facility] Med P.C.: No
[2017-01-26 11:31] VITALS: BP 167/87; PULSE 84; TEMP 97.7
--- NOTE | 2017-01-26 11:48 | PN ---
Progress Note, Physician History of Present Illness: No complaints No abdominal pain Afebrile WBC WNL MRI (-) hepatic abscess Alk phos remains elevated, slightly improved - Current Medication List Current Medications: Active Medications Acetaminophen (Tylenol -) 650 mg PO Q4H PRN PRN Reason: FEVER Last Admin: 01/21/17 19:37 Dose: 650 mg Acetaminophen (Tylenol Suppository -) 650 mg [place] Q4H PRN PRN Reason: FEVER OR PAIN Last Admin: 01/18/17 04:30 Dose: 650 mg Amlodipine Besylate (Norvasc -) 10 mg PO DAILY [facility] Last Admin: 01/26/17 10:14 Dose: 10 mg Atorvastatin Calcium (Lipitor -) 80 mg PO HS [facility] Last Admin: 01/25/17 22:11 Dose: 80 mg Diphenhydramine HCl (Benadryl -) 25 mg PO HS [facility] Last Admin: 01/25/17 22:11 Dose: 25 mg Fluconazole (Diflucan 400 Mg/Ns Premixed Ivpb -) 200 mls @ 100 mls/hr IVPB DAILY [facility] Last Admin: 01/26/17 10:17 Dose: 100 mls/hr Insulin Aspart (Novolog Vial Sliding Scale -) 1 vial SQ ACHS EUGENE PRN Reason: Protocol Last Admin: 01/26/17 06:26 Dose: Not Given Lactobacillus Acidophilus (Bacid -) 1 tab PO DAILY [facility] Last Admin: 01/26/17 10:14 Dose: 1 tab Nystatin (Mycostatin Ointment -) 1 applic TP BID [facility] Last Admin: 01/26/17 10:17 Dose: 1 applic Psyllium Hydrophilic Mucilloid (Metamucil (Sugar-Free) -) 5.85 gm PO DAILY [facility] Last Admin: 01/26/17 10:17 Dose: 5.85 gm Simethicone (Mylicon -) 80 mg PO Q4H PRN PRN Reason: bloating Tamsulosin HCl (Flomax -) 0.4 mg PO DAILY [facility] Last Admin: 01/26/17 10:14 Dose: 0.4 mg - Objective Vital Signs: Vital Signs Temperature 97.7 F 01/26/17 10:00 Pulse Rate 84 01/26/17 10:00 Respiratory Rate 18 01/26/17 10:00 Blood Pressure 167/87 01/26/17 10:00 O2 Sat by Pulse Oximetry (%) 98 01/25/17 11:52 Constitutional: Yes: No Distress Eyes: Yes: Conjunctiva Clear Cardiovascular: Yes: Regular Rate and Rhythm, S1, S2 Respiratory: Yes: CTA Bilaterally Gastrointestinal: Yes: Normal Bowel Sounds, Soft. No: Tenderness Edema: No Labs: CBC, BMP 01/26/17 06:00 01/26/17 06:00 INR, PTT INR 1.43 (0.82-1.09) H 01/18/17 06:00 Assessment/Plan Fungemia Elevated ALK PHOS- possibly drug-induced Substitute fluconazole 200mg po qd x 14 days Needs follow up LFTs next 48hr, outpatient ophtho exam to R/O endophthalmitis
[2017-01-28 00:15] LABS: COLOR Brown (.)
--- NOTE | 2017-01-28 17:03 | DS ---
Physical Exam: SUBJECTIVE: Patient seen and examined OBJECTIVE: PHYSICAL EXAM . LABS Laboratory Results - last 24 hr 01/20/17 01/25/17 13:06 07:20 Stone Size Stone Weight 26.0 Stone Color Brown Stone Shell TNP Stone Surface Crystals TNP Ur Stone Photo Note Stone Composition Ammonium Acid Urate TNP Stone Cystine TNP Calcium Bilirubinate TNP Stone Calcium Carbonate TNP Stone Calcium Phosphate 80 Ca Hydrogen Phosphate TNP Magnes Tiburcio Phosphate TNP Stone Newberyite TNP Stone Triamterene TNP Uric Acid Dihydrate TNP Stone Uric Acid TNP Stone Sodium Acid Urate TNP Ca Oxalate Monohydrate 17 Ca Oxalate Dihydrate 03 Stone Nidus No nidus visualized Stone Cholesterol TNP Stone Dried Blood TNP Stone Cellular Material TNP Stone Comment TNP CARMEN Screen Negative Ref Test Comments CBC, BMP 01/26/17 06:00 01/26/17 06:00 HOSPITAL COURSE: Date of Admission:01/17/17 This 66 year old male underwent a ureter stent removal and urethralscopy with stone removal today. While in [facility] recovery, pt developed fever, chills, rigors. Dr. Reyes contacted the hospitalist service for pt admission. Pt has a significant history of current use of vancomycin po for cdiff. According to his , pt has had a decline over the past year with loss of bowel and bladder, shuffling walking, stones kidney reoccuring and mild AMS with findings of normal pressure hydrocephalus. He has also been noncompliant with his medications. ASU course was notable for: (1) stent removal, scoping, and stone removal per Dr. Reyes (2)cdiff: continue on vanco (3)fever of unknown: cultures This is a 66-year-old man with a history of type 2 DM, NPH, HTN, kidney stones, C. diff colitis who was admitted for fever and chills after cystoscopy, left ureteral stent removal and and stone manipulation. Pt was found to have Sepsis secondary to fungemia with Toby albicans. Pt was treated with Cancidas for 6days and was discharge on diflucan 200mg Po daily for 14 days. Pt is to have LFTs weekly and follow up with ID Dr Baires/Al within 1 week. Pt developped Hepatic transaminitis with elevated alk phos which worsening through the admission. Possible causes included sepsis, Cancidas. Cancidas was discontinued. LFTS improved. US right upper quadrant was done and showed hepatomegaly and fatty liver. MRI of abdomen was done was negative for fungal abscess and hepatoslenic candidiasis. Pt will need to follow with it consultant especially in the settign of protal hypertension with hepatitis panel being negative. Pt will need to continue Flomax flomax and have outpatient follow up with dr Pineda in 2 weeks and PRN. Pt had a h/o of C- diff , completed a course of vancomycin PO. Will continue Norvasc for Hypertension, Lipitor for Hyperlipidemia. Pt is to resume metformin for diabetes. Pt has normal pressure hydrocephalus and is to follow with neurology, neurolsurgery for shunt. Pt has sleep apnea and is continue using BIPAP/CPAP at night. Pt has to follow up with ophtalmologist to r/o toby chorioretinitis within 1 week. Prescription for liver profile provided to patient. Date of Discharge: 01/28/17 Minutes to complete discharge: 40 Discharge Summary Reason For Visit: URETERAL STONE Condition: Stable - Instructions Diet, Activity, Other Instructions: You may resume activity as prior to admission. You have been placed a high fiber diabetic diet. Please schedule appointments with your manager environmental health and safety, Dr. Pérez, and Dr. Baires this week. You should have blood work done on Friday. Referrals: Juvenal Reyes MD [Staff Physician] - 1 Week Amee Baires MD [Staff Physician] - 1 Week Patience Pérez MD [Staff Physician] - 1 Week Disposition: HOME - Home Medications Comprehensive Discharge Medication List: Ambulatory Orders Amlodipine Bes/Olmesartan Med [Amlodipine-Olmesartan 10-20 mg] 1 each PO DAILY 01/01/17 Atorvastatin Ca [Lipitor] 80 mg PO HS 01/01/17 Metformin HCl [Metformin HCl ER] 1,000 mg PO BID 01/01/17 Tamsulosin HCl 0.4 mg PO DAILY 01/01/17 Fluconazole 200 mg PO DAILY #14 tablet 01/26/17 Hepatic Function Panel 1 ea NR ONCE #1 ea 01/26/17 Lactobacillus Acidophilus [Bacid -] 1 tab PO DAILY tab 01/26/17 Nystatin Ointment [Mycostatin Ointment -] 1 applic TP BID #30 g 01/26/17 Psyllium [Metamucil (Sugar-Free) -] 5.85 gm PO DAILY packet 01/26/17 This patient is new to me today: No Emergency Visit: Yes ED Registration Date: 01/17/17 Care time: The patient presented to the Emergency Department on the above date and was hospitalized for further evaluation of their emergent condition. Critical Care patient: No - Discharge Referral Referred to [facility] Med P.C.: No
[2017-01-29 08:08] LABS: ALPHA 2 MACROGLOBULINS,QN 218 mg/dL (110-276); BILIRUBIN TOTAL 0.6 mg/dL (0.0-1.2); GGT= 297 IU/L (0-65); GLUCOSE SERUM 198 mg/dL (65-99); HAPTOGLOBIN= 394 mg/dL (34-200); HEIGHT 68 Inches (.); TRIGLYCERIDES= 249 mg/dL (0-149)
== END 2017-01-26 18:00 | disposition home or self-care (01) | DRG 856 ==
LOC: JASU-SURG 09:59 → J8W 20:09 → JASU-SURG 20:10
PROVIDERS: ADMIT Internal Medicine; ATTEND Internal Medicine
PROC: 0TP98DZ Removal of Intraluminal Device from Ureter, Via Natural or Artificial Opening Endoscopic (ICD-10-PCS; 2017-01-17)
PROC: BT171ZZ Fluoroscopy of Left Ureter using Low Osmolar Contrast (ICD-10-PCS; 2017-01-17)
PROC: 0TC78ZZ Extirpation of Matter from Left Ureter, Via Natural or Artificial Opening Endoscopic (ICD-10-PCS; principal; 2017-01-17 11:30)
DX: T81.4XXA Infection following a procedure, initial encounter (principal); B37.7 Candidal sepsis; G91.2 (Idiopathic) normal pressure hydrocephalus; K76.6 Portal hypertension; B49 Unspecified mycosis; N20.1 Calculus of ureter; I10 Essential (primary) hypertension; Z91.14 Patient's other noncompliance with medication regimen; G47.30 Sleep apnea, unspecified; E11.9 Type 2 diabetes mellitus without complications; E87.6 Hypokalemia; Z79.84 Long term (current) use of oral hypoglycemic drugs; R14.0 Abdominal distension (gaseous); K74.60 Unspecified cirrhosis of liver; R16.0 Hepatomegaly, not elsewhere classified; E78.5 Hyperlipidemia, unspecified; R32 Unspecified urinary incontinence; R19.7 Diarrhea, unspecified; K76.0 Fatty (change of) liver, not elsewhere classified; K75.89 Other specified inflammatory liver diseases; Z87.891 Personal history of nicotine dependence; N40.0 Benign prostatic hyperplasia without lower urinary tract symptoms; R74.0 Nonspecific elevation of levels of transaminase and lactic acid dehydrogenase [LDH]; Y83.8 Other surgical procedures as the cause of abnormal reaction of the patient, or of later complication, without mention of misadventure at the time of the procedure
CPT/HCPCS: 36415; 71010-TC; 74000-TC; 74178-TC; 74182-TC; 76000-TC; 76705-TC; 80048; 80053; 80061; 80074; 80076; 81003; 81015; 82040; 82105; 82150; 82172; 82247; 82360; 82465; 82728; 82947; 82977; 83010; 83036; 83540; 83550; 83605; 83690; 83721; 83735; 83883; 84450; 84460; 84478; 85025; 85027; 85610; 85651; 86038; 86140; 87040; 87077; 87086; 87106; 87324; 87449; 88300-TC; 93005; 93010; 93306-TC; 94660; 94760; A9576; J0637

== ENCOUNTER 2021-06-27 04:50 | Day surgery (SDC) | payer OTHER, MEDICARE ==
[2021-06-26 15:18] VITALS: BMI 28.1
[~2021-06-27 04:50] MED LIST: ACETAMINOPHEN 325 MG TABLET (FP) PO PRN; BSS (NA/CA/MG/K) BALANCED SALT SOLUTION OPHTH SOLN 15 ML BOTTLE OS ONE; BUPIVACAINE HCL/PF 0.75% 10 ML VIAL NR ONE; CHONDROITIN SU A/HYALUR SOD 1 KIT IO ONE; CYCLOPENTOLATE HCL 1% OPHTH SOLN 2 ML BOTTLE OP SCH; KETOROLAC TROMETHAMINE 0.5% EYE DROP 1 DROP DROPS OP SCH; LIDOCAINE HCL 1% PRESERVATIVE FREE - 30ML VIAL IO ONE; LIDOCAINE HCL/PF 2% SDV 5ML VIAL INF ONE; OFLOXACIN 0.3% OPHTHALMIC SOLUTION 5 ML BOTTLE OP SCH; PHENYLEPHRINE 2.5% OPHTH SOLN 15 ML BOTTLE OP SCH; PHENYLEPHRINE/KETOROLAC 4 ML VIAL IO ONE; POVIDONE-IODINE 5% OPHTHALMIC PREP 30 ML SOLUTION OS ONE; TROPICAMIDE 1% OPHTH SOLN 15 ML BOTTLE OP SCH
[2021-06-27] MEDS ORDERED: POVIDONE-IODINE 5% OPHTHALMIC PREP 30 ML SOLUTION ONE (07:18)
[2021-06-27] MEDS ORDERED: LIDOCAINE HCL/PF 2% SDV 5ML VIAL ONE (07:18)
[2021-06-27] MEDS ORDERED: LIDOCAINE HCL/PF 1% SDV 5ML VIAL ONE (07:18)
[2021-06-27] MEDS ORDERED: EPINEPHrine/PF 1 MG/1 ML (1:1,000) AMPULE ONE (07:18)
[2021-06-27] MEDS ORDERED: BUPIVACAINE HCL/PF 0.75% 10 ML VIAL ONE (07:18)
[2021-06-27] MEDS ORDERED: TRYPAN BLUE 0.5 ML DISP.SYRIN ONE (07:18)
[2021-06-27] MEDS ORDERED: KETOROLAC TROMETHAMINE 0.5% EYE DROP 1 DROP DROPS ONE (08:50)
[2021-06-27] MEDS ORDERED: TROPICAMIDE 1% OPHTH SOLN 15 ML BOTTLE ONE (08:50)
[2021-06-27] MEDS ORDERED: CYCLOPENTOLATE HCL 1% OPHTH SOLN 2 ML BOTTLE ONE (08:50)
[2021-06-27] MEDS ORDERED: OFLOXACIN 0.3% OPHTHALMIC SOLUTION 5 ML BOTTLE ONE (08:51)
[2021-06-27] MEDS ORDERED: PHENYLEPHRINE 2.5% OPTHALMIC DROP BOTTLE ONE (08:53)
[2021-06-27] MEDS ORDERED: INSULIN REGULAR HUMAN 100 UNITS/ML *VIAL SQ ONE ×2 (09:23→10:00)
[2021-06-27] MEDS ORDERED: TROPICAMIDE 1% OPHTH SOLN 15 ML BOTTLE OS ONE ×3 (09:30→09:40)
[2021-06-27] MEDS ORDERED: PHENYLEPHRINE 2.5% OPHTH SOLN 15 ML BOTTLE OS ONE ×3 (09:30→09:40)
[2021-06-27] MEDS ORDERED: KETOROLAC TROMETHAMINE 0.5% EYE DROP 1 DROP DROPS OS ONE ×3 (09:30→09:40)
[2021-06-27] MEDS ORDERED: OFLOXACIN 0.3% OPHTHALMIC SOLUTION 5 ML BOTTLE OS ONE ×3 (09:30→09:40)
[2021-06-27] MEDS ORDERED: CYCLOPENTOLATE HCL 1% OPHTH SOLN 2 ML BOTTLE OS ONE ×3 (09:30→09:40)
[2021-06-27] MEDS ORDERED: BUPIVACAINE HCL/PF 0.75% 10 ML VIAL NR ONE (10:53)
[2021-06-27] MEDS ORDERED: LIDOCAINE HCL/PF 2% SDV 5ML VIAL INF ONE (10:53)
[2021-06-27] MEDS ORDERED: POVIDONE-IODINE 5% OPHTHALMIC PREP 30 ML SOLUTION OS ONE (10:56)
[2021-06-27] MEDS ORDERED: BSS (NA/CA/MG/K) BALANCED SALT SOLUTION OPHTH SOLN 15 ML BOTTLE OS ONE (11:02)
[2021-06-27] MEDS ORDERED: CHONDROITIN SU A/HYALUR SOD 1 KIT IO ONE (11:02)
[2021-06-27] MEDS ORDERED: LIDOCAINE HCL 1% PRESERVATIVE FREE - 30ML VIAL IO ONE (11:02)
[2021-06-27] MEDS ORDERED: TRYPAN BLUE 0.5 ML DISP.SYRIN IO ONE (11:03)
[2021-06-27] MEDS ORDERED: PHENYLEPHRINE/KETOROLAC 4 ML VIAL IO ONE (11:08)
[2021-06-27 13:03] VITALS: BP 149/84; PULSE 67; TEMP 98
== END 2021-06-27 12:30 | disposition home or self-care (01) ==
LOC: JASU-SURG 04:50
PROVIDERS: ATTEND Ophthalmology
PROC: 08RK3JZ Replacement of Left Lens with Synthetic Substitute, Percutaneous Approach (ICD-10-PCS; principal; 2021-06-27 10:00)
DX: H26.9 Unspecified cataract (principal)
CPT/HCPCS: 82962; J1097

== ENCOUNTER 2022-08-14 18:24 | Inpatient (IN) | payer OTHER, MEDICARE ==
[2022-08-14] MEDS ORDERED: ACETAMINOPHEN 1000 MG/100 ML BAG IVPB ONE (19:46)
[2022-08-14] MEDS ORDERED: ACETAMINOPHEN 325 MG TABLET (FP) ONE (20:10)
[2022-08-14] MEDS ORDERED: ACETAMINOPHEN 500 MG TABLET (FP) PO ONE (20:13)
[2022-08-14] MEDS ORDERED: amLODIPine BESYLATE 10 MG TABLET (FP) PO ONE (20:19)
[2022-08-14] MEDS ORDERED: metFORMIN HCL 500 MG TABLET (FP) PO ONE (20:19)
[2022-08-14] MEDS ORDERED: glipiZIDE 10 MG TABLET (FP) PO ONE (20:20)
[2022-08-14] MEDS ORDERED: ATORVASTATIN CA 40 MG TABLET (FP) PO ONE (20:20)
[2022-08-14] MEDS ORDERED: glipiZIDE 5 MG TABLET (FP) ONE (20:29)
[2022-08-14] MEDS ORDERED: metFORMIN HCL 500 MG TABLET (FP) ONE (20:29)
[2022-08-14] MEDS ORDERED: amLODIPine BESYLATE 10 MG TABLET (FP) ONE (20:29)
[2022-08-14] MEDS ORDERED: ATORVASTATIN CA 40 MG TABLET (FP) ONE (20:29)
[2022-08-14] MEDS ORDERED: SODIUM CHLORIDE 500 ML IV STA (20:41)
[2022-08-14] MEDS ORDERED: DEXTROSE 5%-0.45% SALINE 1,000 ML IV SCH (20:45)
[2022-08-14] MEDS ORDERED: HYDROCHLOROTHIAZIDE 25 MG TABLET (FP) ONE (20:47)
[2022-08-14] MEDS ORDERED: CEFTRIAXONE 1,000 MG in DEXTROSE 5%-WATER - 50 ML IVPB ONE (20:50)
[2022-08-14] MEDS: HYDROCHLOROTHIAZIDE 12.5 MG CAPSULE (FP) PO SCH (20:51)
[2022-08-14] MEDS ORDERED: CEFTRIAXONE 1 GM/50 ML BAG ONE (20:53)
[2022-08-14 21:12] LABS: CREATININE 0.9 mg/dL (0.55-1.3)
[2022-08-14 21:41] LABS: BASO % 0.5 % (0-2.0); EOS % 0.9 % (0-4.5); HEMATOCRIT 33.7 % (35.4-49); HEMOGLOBIN 11.5 GM/dL (11.7-16.9); LYMPH % 6.3 % (8-40); MCH 28.1 pg (25.7-33.7); MCHC 34.3 g/dl (32.0-35.9); MONO % 5.1 % (3.8-10.2); NEUT % 87.2 % (42.8-82.8); PLATELET COUNT 250 10^3/uL (134-434); RBC 4.11 M/mm3 (4.00-5.60); RDW 15.4 % (11.9-15.9); WHITE BLOOD COUNT 11.7 K/mm3 (4.0-10.0)
[2022-08-14 22:25] LABS: EPI CELLS 1 /uL (0-25.1); HYALINE CASTS 0 /uL (0-3.1); URINE APPEARANCE CLOUDY; URINE BACTERIA 836 /uL (0-1359); URINE BILIRUBIN NEGATIVE (NEGATIVE); URINE COLOR YELLOW; URINE GLUCOSE (UA) NEGATIVE (NEGATIVE); URINE KETONE NEGATIVE (NEGATIVE); URINE LEUK ESTERASE 3+ (NEGATIVE); URINE NITRITE NEGATIVE (NEGATIVE); URINE PROTEIN 2+ (NEGATIVE); URINE RBC 135 /uL (0-23.9); URINE UROBILINOGEN 0.2 mg/dL (0.2-1.0); URINE WBC 2743 /uL (0-25.8)
[2022-08-15] MEDS ORDERED: DOCUSATE SODIUM 100 MG CAPSULE (FP) PO PRN (00:24)
[2022-08-15 00:54] LABS: YEAST NEGATIVE (NEGATIVE)
[2022-08-15] MEDS ORDERED: ACETAMINOPHEN 1000 MG/100 ML BAG IVPB PRN (02:00)
[2022-08-15 02:29] VITALS: BMI 26.1
[2022-08-15] MEDS: INSULIN SLIDING SCALE (NOVOLOG) 1 VIAL SQ SCH ×4 (06:19→21:44)
[2022-08-15] MEDS ORDERED: TAMSULOSIN HCL 0.4 MG CAP PO ONE (08:30)
[2022-08-15] MEDS: risperiDONE 0.5 MG TABLET PO SCH ×2 (09:44→21:39)
[2022-08-15] MEDS: HYDROCHLOROTHIAZIDE 12.5 MG CAPSULE (FP) PO SCH (09:44)
[2022-08-15] MEDS: LOSARTAN POTASSIUM 50 MG TABLET PO SCH (09:45)
[2022-08-15] MEDS: amLODIPine BESYLATE 10 MG TABLET (FP) PO SCH (09:45)
[2022-08-15 09:52] LABS: BASO % 0.2 % (0-2.0); EOS % 0.3 % (0-4.5); HEMATOCRIT 32.8 % (35.4-49); HEMOGLOBIN 11.3 GM/dL (11.7-16.9); LYMPH % 7.9 % (8-40); MCH 27.6 pg (25.7-33.7); MCHC 34.3 g/dl (32.0-35.9); MEAN CELL VOLUME 80.4 fl (80-96); MEAN PLT VOLUME 8.2 fl (7.5-11.1); NEUT % 83.6 % (42.8-82.8); PLATELET COUNT 247 10^3/uL (134-434); RBC 4.08 M/mm3 (4.00-5.60); WHITE BLOOD COUNT 14.2 K/mm3 (4.0-10.0)
[2022-08-15] MEDS ORDERED: VANCOMYCIN/WATER FOR INJ (PEG) 1,000 MG/200 ML BAG IVPB ONE (15:15)
[2022-08-15] MEDS: PIPERACILLIN/TAZOB 3.375 GM 3.375 GM in DEXTROSE 5%-WATER - 50 ML IVPB SCH ×3 (15:18→17:31)
[2022-08-15] MEDS ORDERED: SODIUM CHLORIDE 0.45% 1,000 ML IV SCH (15:45)
[2022-08-15] MEDS: ATORVASTATIN CA 40 MG TABLET (FP) PO SCH (21:40)
[2022-08-15] MEDS: TAMSULOSIN HCL 0.4 MG CAP PO SCH (21:40)
[2022-08-15] MEDS ORDERED: CEFTRIAXONE 1 GM in DEXTROSE 5%-WATER - 50 ML IVPB SCH (22:00)
[2022-08-16] MEDS ORDERED: ACETAMINOPHEN 325 MG TABLET (FP) PO PRN (02:00)
[2022-08-16] MEDS: PIPERACILLIN/TAZOB 3.375 GM 3.375 GM in DEXTROSE 5%-WATER - 50 ML IVPB SCH ×3 (02:06→17:51)
[2022-08-16] MEDS: INSULIN SLIDING SCALE (NOVOLOG) 1 VIAL SQ SCH ×4 (06:09→21:35)
[2022-08-16 09:32] LABS: HEMATOCRIT 33.6 % (35.4-49); HEMOGLOBIN 11.4 GM/dL (11.7-16.9); MCH 27.2 pg (25.7-33.7); MCHC 33.8 g/dl (32.0-35.9); MEAN CELL VOLUME 80.3 fl (80-96); MEAN PLT VOLUME 7.9 fl (7.5-11.1); PLATELET COUNT 255 10^3/uL (134-434); RBC 4.18 M/mm3 (4.00-5.60); RDW 15.1 % (11.9-15.9); WHITE BLOOD COUNT 11.8 K/mm3 (4.0-10.0)
[2022-08-16] MEDS: LOSARTAN POTASSIUM 50 MG TABLET PO SCH (09:51)
[2022-08-16] MEDS: TAMSULOSIN HCL 0.4 MG CAP PO SCH ×2 (09:51→21:35)
[2022-08-16] MEDS: risperiDONE 0.5 MG TABLET PO SCH ×2 (09:51→21:35)
[2022-08-16] MEDS: amLODIPine BESYLATE 10 MG TABLET (FP) PO SCH (09:51)
[2022-08-16 10:37] LABS: BLOOD UREA NITROGEN 18.6 mg/dL (7-18)
[2022-08-16 10:38] LABS: ALBUMIN 3.3 g/dl (3.4-5.0); MAGNESIUM 2.2 mg/dL (1.8-2.4)
[2022-08-16 10:40] LABS: CREATININE 1.2 mg/dL (0.55-1.3); PHOSPHOROUS 3.4 mg/dL (2.5-4.9)
[2022-08-16 10:41] LABS: TOT PROT 7.1 g/dl (6.4-8.2)
[2022-08-16] MEDS ORDERED: SODIUM CHLORIDE 0.45% 1,000 ML IV SCH (17:00)
[2022-08-16] MEDS: ATORVASTATIN CA 40 MG TABLET (FP) PO SCH (21:35)
[2022-08-17] MEDS: PIPERACILLIN/TAZOB 3.375 GM 3.375 GM in DEXTROSE 5%-WATER - 50 ML IVPB SCH ×2 (02:15→09:47)
[2022-08-17] MEDS: INSULIN SLIDING SCALE (NOVOLOG) 1 VIAL SQ SCH ×4 (06:03→22:57)
[2022-08-17] MEDS: risperiDONE 0.5 MG TABLET PO SCH ×2 (09:47→22:57)
[2022-08-17] MEDS: amLODIPine BESYLATE 10 MG TABLET (FP) PO SCH (09:47)
[2022-08-17] MEDS: LOSARTAN POTASSIUM 50 MG TABLET PO SCH (09:47)
[2022-08-17] MEDS: TAMSULOSIN HCL 0.4 MG CAP PO SCH ×2 (09:47→22:57)
[2022-08-17 10:10] LABS: HEMATOCRIT 29.4 % (35.4-49); MCH 27.6 pg (25.7-33.7); MCHC 34.1 g/dl (32.0-35.9); MEAN CELL VOLUME 81.2 fl (80-96); MEAN PLT VOLUME 8.1 fl (7.5-11.1); PLATELET COUNT 222 10^3/uL (134-434); RBC 3.62 M/mm3 (4.00-5.60); RDW 14.7 % (11.9-15.9); WHITE BLOOD COUNT 5.9 K/mm3 (4.0-10.0)
[2022-08-17 10:42] LABS: ALBUMIN 2.8 g/dl (3.4-5.0); BLOOD UREA NITROGEN 18.5 mg/dL (7-18); CALCIUM 8.6 mg/dL (8.5-10.1)
[2022-08-17 10:45] LABS: CREATININE 1.2 mg/dL (0.55-1.3)
[2022-08-17 10:47] LABS: BILIRUBIN,TOTAL 0.6 mg/dL (0.2-1); TOT PROT 5.9 g/dl (6.4-8.2)
[2022-08-17] MEDS ORDERED: INSULIN (NOVOLOG) ASPART 100 UNITS/ML 10ML VIAL ONE (11:26)
[2022-08-17 12:40] VITALS: RESP 18
[2022-08-17] MEDS: ATORVASTATIN CA 40 MG TABLET (FP) PO SCH (22:57)
[2022-08-17] MEDS: CIPROFLOXACIN 500 MG TABLET (RESTRICTED TO ID) PO SCH (22:59)
[2022-08-18] MEDS: INSULIN SLIDING SCALE (NOVOLOG) 1 VIAL SQ SCH ×4 (07:14→23:26)
[2022-08-18] MEDS: TAMSULOSIN HCL 0.4 MG CAP PO SCH ×2 (10:11→23:24)
[2022-08-18] MEDS: CIPROFLOXACIN 500 MG TABLET (RESTRICTED TO ID) PO SCH ×2 (10:11→23:25)
[2022-08-18] MEDS: LOSARTAN POTASSIUM 50 MG TABLET PO SCH (10:11)
[2022-08-18] MEDS: risperiDONE 0.5 MG TABLET PO SCH ×2 (10:11→23:24)
[2022-08-18] MEDS: amLODIPine BESYLATE 10 MG TABLET (FP) PO SCH (10:11)
[2022-08-18] MEDS: ATORVASTATIN CA 40 MG TABLET (FP) PO SCH (23:24)
[2022-08-19] MEDS: INSULIN SLIDING SCALE (NOVOLOG) 1 VIAL SQ SCH ×2 (07:03→11:41)
[2022-08-19] MEDS: amLODIPine BESYLATE 10 MG TABLET (FP) PO SCH (10:59)
[2022-08-19] MEDS: LOSARTAN POTASSIUM 50 MG TABLET PO SCH (10:59)
[2022-08-19] MEDS: TAMSULOSIN HCL 0.4 MG CAP PO SCH (10:59)
[2022-08-19] MEDS: risperiDONE 0.5 MG TABLET PO SCH (10:59)
[2022-08-19] MEDS: CIPROFLOXACIN 500 MG TABLET (RESTRICTED TO ID) PO SCH (11:02)
[2022-08-19 13:29] VITALS: BP 150/72; PULSE 72; TEMP 98.6
== END 2022-08-19 13:31 | disposition home health service (06) | DRG 690 ==
LOC: JER 18:24 → JERBED 20:52 → J8W 08-15 00:49
PROVIDERS: ADMIT Internal Medicine; ATTEND Family Medicine
DX: N39.0 Urinary tract infection, site not specified (principal); I97.3 Postprocedural hypertension; F02.80 Dementia in other diseases classified elsewhere, unspecified severity, without behavioral disturbance, psychotic disturbance, mood disturbance, and anxiety; G31.09 Other frontotemporal neurocognitive disorder; R33.9 Retention of urine, unspecified; Y83.9 Surgical procedure, unspecified as the cause of abnormal reaction of the patient, or of later complication, without mention of misadventure at the time of the procedure; E78.5 Hyperlipidemia, unspecified; N40.0 Benign prostatic hyperplasia without lower urinary tract symptoms; D72.829 Elevated white blood cell count, unspecified; B96.5 Pseudomonas (aeruginosa) (mallei) (pseudomallei) as the cause of diseases classified elsewhere
CPT/HCPCS: 36415; 51102; 70450-TC; 71045-TC-FY; 80048; 80053; 81003; 82962; 83605; 83735; 84100; 85025; 85027; 85610; 87040; 87086; 87186; 93005; 93010; 97116-GP; 97161-GP; 99285-25; C9803-CS; U0003; U0005

== ENCOUNTER 2022-08-24 05:49 | Emergency (ER) | payer OTHER, MEDICARE ==
[2022-08-24 05:57] VITALS: BP 172/82; PULSE 74; RESP 20; BMI 27.1
[2022-08-24 06:01] VITALS: TEMP 98.7
[2022-08-24 06:59] LABS: EPI CELLS 2 /uL (0-25.1); HYALINE CASTS 2 /uL (0-3.1); PH,URINE 5.5 (5.0-8.0); URINE APPEARANCE CLOUDY; URINE BACTERIA 14 /uL (0-1359); URINE BILIRUBIN NEGATIVE (NEGATIVE); URINE COLOR YELLOW; URINE GLUCOSE (UA) 2+ (NEGATIVE); URINE KETONE NEGATIVE (NEGATIVE); URINE LEUK ESTERASE 3+ (NEGATIVE); URINE NITRITE NEGATIVE (NEGATIVE); URINE PROTEIN 2+ (NEGATIVE); URINE UROBILINOGEN 0.2 mg/dL (0.2-1.0); URINE WBC 2081 /uL (0-25.8)
[2022-08-24 09:15] LABS: YEAST MANY (NEGATIVE)
== END 2022-08-24 06:54 | disposition home or self-care (01) ==
LOC: JER 05:49
DX: T83.091A Other mechanical complication of indwelling urethral catheter, initial encounter (principal)
CPT/HCPCS: 81003; 87077; 87086; 99283-25

== ENCOUNTER 2022-09-26 14:51 | Inpatient (IN) | payer OTHER, MEDICARE ==
[2022-09-26 15:10] VITALS: BMI 28.8
[2022-09-26] MEDS ORDERED: LACTATED RINGERS SOLUTION 1000 ML INFUS.BAG IV ONE (16:28)
[2022-09-26 17:29] LABS: BASO % 0.9 % (0-2.0); EOS % 1.4 % (0-4.5); HEMATOCRIT 37.7 % (35.4-49); HEMOGLOBIN 12.5 GM/dL (11.7-16.9); LYMPH % 26.6 % (8-40); MCH 25.9 pg (25.7-33.7); MEAN CELL VOLUME 78.6 fl (80-96); MEAN PLT VOLUME 8.2 fl (7.5-11.1); MONO % 6.9 % (3.8-10.2); NEUT % 64.2 % (42.8-82.8); PLATELET COUNT 229 10^3/uL (134-434); RDW 15.1 % (11.9-15.9); WHITE BLOOD COUNT 8.3 K/mm3 (4.0-10.0)
[2022-09-26 17:32] LABS: EPI CELLS 1 /uL (0-25.1); HYALINE CASTS 0 /uL (0-3.1); PH,URINE 8.5 (5.0-8.0); URINE APPEARANCE TURBID; URINE BACTERIA 5998 /uL (0-1359); URINE BILIRUBIN NEGATIVE (NEGATIVE); URINE COLOR ORANGE; URINE GLUCOSE (UA) NEGATIVE (NEGATIVE); URINE KETONE NEGATIVE (NEGATIVE); URINE LEUK ESTERASE 2+ (NEGATIVE); URINE NITRITE NEGATIVE (NEGATIVE); URINE PROTEIN 3+ (NEGATIVE); URINE RBC 4472 /uL (0-23.9); URINE UROBILINOGEN 0.2 mg/dL (0.2-1.0); URINE WBC 1980 /uL (0-25.8)
[2022-09-26 17:51] LABS: ALBUMIN 3.4 g/dl (3.4-5.0); BLOOD UREA NITROGEN 27.5 mg/dL (7-18); CALCIUM 9.3 mg/dL (8.5-10.1)
[2022-09-26] MEDS ORDERED: VANCOMYCIN 1,000 MG in DEXTROSE 5%-WATER - 250 ML IVPB ONE (17:52)
[2022-09-26 17:53] LABS: CREATININE 1.1 mg/dL (0.55-1.3)
[2022-09-26] MEDS ORDERED: PIPERACILLIN/TAZOB 4.5 GM 4.5 GM in DEXTROSE 5%-WATER 100 ML IVPB ONE (17:54)
[2022-09-26 17:55] LABS: BILIRUBIN,TOTAL 0.4 mg/dL (0.2-1); TOT PROT 6.8 g/dl (6.4-8.2)
[2022-09-26] MEDS ORDERED: PIPERACILLIN/TAZOB 4.5 GM 4.5 GM/100 ML BAG IVPB ONE (18:41)
[2022-09-26] MEDS ORDERED: VANCOMYCIN/WATER FOR INJ (PEG) 1,000 MG/200 ML BAG IVPB ONE (18:41)
[2022-09-26] MEDS ORDERED: ACETAMINOPHEN 325 MG TABLET (FP) PO PRN (21:25)
[2022-09-26] MEDS ORDERED: DOCUSATE SODIUM 100 MG CAPSULE (FP) PO PRN (21:25)
[2022-09-26] MEDS: INSULIN SLIDING SCALE (NOVOLOG) 1 VIAL SQ SCH (23:37)
[2022-09-27] MEDS ORDERED: PIPERACILLIN/TAZOB 3.375 GM 3.375 GM in DEXTROSE 5%-WATER - 50 ML IVPB SCH (01:30)
[2022-09-27] MEDS: PIPERACILLIN/TAZOB 3.375 GM 3.375 GM in DEXTROSE 5%-WATER - 50 ML IVPB SCH ×3 (03:26→14:47)
[2022-09-27] MEDS: INSULIN SLIDING SCALE (NOVOLOG) 1 VIAL SQ SCH ×3 (06:51→17:32)
[2022-09-27] MEDS ORDERED: VANCOMYCIN 1 GM in D5W (PRE-DOCKED) 1,000 MG/250 ML IVPB SCH (08:00)
[2022-09-27] MEDS ORDERED: VANCOMYCIN/WATER FOR INJ (PEG) 1,000 MG/200 ML BAG IVPB SCH (08:00)
[2022-09-27 10:09] LABS: INR 1.04 (0.83-1.09)
[2022-09-27 10:10] LABS: BASO % 0.7 % (0-2.0); EOS % 1.6 % (0-4.5); HEMATOCRIT 36.6 % (35.4-49); HEMOGLOBIN 12.3 GM/dL (11.7-16.9); LYMPH % 16.2 % (8-40); MCH 26.2 pg (25.7-33.7); MCHC 33.6 g/dl (32.0-35.9); MEAN CELL VOLUME 78.2 fl (80-96); MEAN PLT VOLUME 8.5 fl (7.5-11.1); MONO % 6.1 % (3.8-10.2); NEUT % 75.4 % (42.8-82.8); PLATELET COUNT 218 10^3/uL (134-434); RBC 4.68 M/mm3 (4.00-5.60); RDW 14.7 % (11.9-15.9); WHITE BLOOD COUNT 6.8 K/mm3 (4.0-10.0)
[2022-09-27 10:12] LABS: ACTIVATED PTT 29.3 SECONDS (25.2-36.5)
[2022-09-27 10:28] LABS: BLOOD UREA NITROGEN 20.5 mg/dL (7-18); CALCIUM 8.9 mg/dL (8.5-10.1); MAGNESIUM 1.8 mg/dL (1.8-2.4)
[2022-09-27 10:32] LABS: CREATININE 1.2 mg/dL (0.55-1.3); PHOSPHOROUS 3.1 mg/dL (2.5-4.9)
[2022-09-27] MEDS ORDERED: HEPARIN NA (PORCINE) 5,000 UNITS/ML 1ML VIAL SQ SCH (14:00)
[2022-09-27 16:14] VITALS: BP 153/86; PULSE 69; RESP 20; TEMP 99.2
== END 2022-09-27 18:49 | disposition home or self-care (01) | DRG 699 ==
LOC: JER 14:51 → JERBED 18:00 → J8W 22:22
PROVIDERS: ADMIT Family Medicine; ATTEND Family Medicine
PROC: 0T2BX0Z Change Drainage Device in Bladder, External Approach (ICD-10-PCS; principal; 2022-09-27)
DX: T83.090A Other mechanical complication of cystostomy catheter, initial encounter (principal); N39.0 Urinary tract infection, site not specified; E11.9 Type 2 diabetes mellitus without complications; N40.0 Benign prostatic hyperplasia without lower urinary tract symptoms; I10 Essential (primary) hypertension; G31.09 Other frontotemporal neurocognitive disorder; F02.80 Dementia in other diseases classified elsewhere, unspecified severity, without behavioral disturbance, psychotic disturbance, mood disturbance, and anxiety; G47.30 Sleep apnea, unspecified; E78.5 Hyperlipidemia, unspecified; Z79.84 Long term (current) use of oral hypoglycemic drugs; E86.0 Dehydration; N31.9 Neuromuscular dysfunction of bladder, unspecified; Y83.8 Other surgical procedures as the cause of abnormal reaction of the patient, or of later complication, without mention of misadventure at the time of the procedure
CPT/HCPCS: 0241U-QW; 36415; 51102; 80048; 80053; 81003; 82962; 83735; 84100; 85025; 85610; 85730; 87086; 87186; 93005; 93010; 99285-25; C1729; C1769; J1644